=== PATIENT | female | born 1975 | race Caucasian/White ===

== ENCOUNTER 2023-03-26 18:17 | Emergency (ER) | payer MEDICAID, SELFPAY ==
[2023-03-26 18:28] VITALS: BP 195/80; PULSE 90; RESP 20; TEMP 36.8; O2SAT 99
--- NOTE | 2023-03-26 18:33 | ED.GENADUL_ITS ---
Discharge Plan Disposition Patient Disposition: Home Discharge Details Clinical Impression: Fall Primary Care Provider: Roger Ellis ED Provider: Steven Garcia Discharge Instructions Instructions: Fall Prevention (ED) Additional Instructions: You were seen in the emergency department for your mechanical fall at home over your dog yesterday. There is no acute abnormality on your abdominal CAT scan and I think that you have an abdominal wall muscle strain. There is no acute fracture to your right hand. Please use therapeutic dosing of Tylenol (acetamenophen) & Advil (ibuprofen) in an alternating fashion as follows: Take 1000mg of Tylenol every 6 hours without missing doses- that is 4 times per day. [place] in between the Tylenol dosings, take 400-600mg of Advil also on a 6 hour schedule, that is also 4 times per day. The daily maximum dosing of Tylenol is 4000mg, and the daily maximum dosing of Advil is 2400mg. This is safe to do for weeks. Please note that some common cold medications & prescription pain medications may contain acetamenophen and you need to read OTC drug labels and factor that in to maximum daily dosings. Rest, ice, compress and elevate any areas of pain. Please return to the emergency department for severe increase in pain, bowel changes, fevers, nausea/vomiting Referrals: Roger Ellis [Primary Care Provider] - Medical Decision Making This dictation utilizes [id number] dictation software and may contain unedited grammatical errors. 47 y/o F presents to ED today with a chief complaint of fall last night- tripped over her dog, impact to L side, reports mild L foot pain, L sided abdominal pain, R hand pain when she rolled over, states the fall started her menses- or she is bleeding from abdominal pain. Patients' medical history: noncontributory. Family and social history: noncontributory. Pertinent exam findings / vital signs include LLQ abdominal tenderness without peritoneal signs, benign cardiopulmonary status, neuro intact. Differential / pathologies of concern include intraabdominal bleeding, abdominal muscle strain, contusions of soft tissue to hand and foot. Diagnostic studies of: -CBC, CMP, UA, CT ABD/Pelvis w Contrast, XR R Hand. -labs benign -UA shows blood & protein, on menses -CT ABD/Pelvis shows no acute pathology -XR Hand shows no fracture Interventions of: -none. ED Course/Assessment/Plan: Patient presents for subacute pain from fall, I counseled her on negative findings on CT and x-ray, counseled therapeutic dosing of Tylenol and ibuprofen, recommend RICE therapy on any areas of pain, likely abdominal wall muscle strain. Findings not consistent with perforated viscous, hemorrhage, fracture, NV Compromise. Disposition of Fall. Patient verbalized understanding of the plan and return to ED criteria and engaged in shared decision making. Medical Records Medical records reviewed: Yes I reviewed the patient's medical records. Imaging Data Radiologic Study: Imaging: CT Scan Radiologist's impression: Exam: CT Abdomen And Pelvis With Contrast Exam date and time: 03/26/2023 8:03 PM Age: 47 years old Clinical indication: Other: Fall, llq pain, vag bleeding TECHNIQUE: Imaging protocol: Computed tomography of the abdomen and pelvis with contrast. Contrast material: 350; Contrast volume: 100 ml; Contrast route: INTRAVENOUS (IV); COMPARISON: No relevant prior studies available. FINDINGS: Lungs: Lung bases clear. Liver: Normal appearing liver. Gallbladder and bile ducts: Gallbladder partially collapsed. No calcified gallstones seen. No biliary dilatation. Pancreas: Normal appearing pancreas. Spleen: Normal appearing spleen. Adrenal glands: Normal appearing adrenal glands. Kidneys and ureters: 2 cm exophytic right renal cyst. Otherwise, normal appearing kidneys. No hydronephrosis. Stomach and bowel: No oral contrast. Stomach partially decompressed. No small bowel dilatation to suggest obstruction. Normal-appearing colon. No evidence of diverticulitis or colitis. Appendix: Normal appendix. Intraperitoneal space: No gross ascites or free air. Vasculature: Normal caliber abdominal aorta. Lymph nodes: No pathologically enlarged mesenteric, retroperitoneal, or pelvic sidewall lymph nodes. Urinary bladder: Normal appearing urinary bladder. Reproductive: Anteverted uterus, normal in size. Normal-appearing ovaries. Bones/joints: No acute fracture seen among the bones of the abdomen or pelvis. Spinal degenerative change with discogenic degeneration, Schmorl's nodes, and anterior osteophytes at multiple levels. Soft tissues: No significant ventral or inguinal hernia. IMPRESSION: 1. No acute visceral or bony injury seen in the abdomen or pelvis. 2. No obstructing ureteral stones. Dictated and Authenticated by: Chad Dunn MD. Ordering:TRINO Harris MD Radiologic Study #2: Imaging: X-Ray Radiologist's impression: Exam: XR Right Hand Exam date and time: 03/26/2023 8:12 PM Age: 47 years old Clinical indication: Injury or trauma; Fall; Blunt trauma (contusions or hematomas); Hand; Right; Injury details: Foosh x yesterday TECHNIQUE: Imaging protocol: Radiologic exam of the right hand. Views: 1 or 2 views. COMPARISON: No relevant prior studies available. FINDINGS: Bones/joints: Dorsopalmar and lateral views of the right hand reveal no acute fracture or dislocation. Soft tissues: No gross focal soft tissue swelling is demonstrated. IMPRESSION: No acute fracture or dislocation seen in the right hand. Dictated and Authenticated by: Chad Dunn MD. Ordering:TRINO Harris MD Lab Data Lab results reviewed: Yes I reviewed the patient's lab results. Labs: Laboratory Tests Range/Units 03/26/23 03/26/23 19:20 19:27 WBC (4.4-10.8) 10^3/uL 6.84 RBC (3.93-5.22) 10^6/uL 4.87 Hgb (11.2-15.7) g/dL 13.4 Hct (36.0-46.0) % 40.4 MCV (80-95) fL 83 MCH (27.0-33.0) pg 27.5 MCHC (32.0-36.0) % 33.2 RDW (11.7-14.6) % 11.9 Plt Count (130-400) 10^3/uL 260 MPV (8.0-11.0) fL 9.1 Immature Gran % 0.4 Neutrophils % 50.6 Lymphocytes % 39.0 Monocytes % 7.3 Eosinophils % 2.0 Basophils % 0.7 Nucleated RBC % (0.0-0.3) % 0.0 Absolute Neutrophils (1.2-6.7) 10^3/uL 3.45 Absolute Lymphocytes (1.2-3.4) 10^3/uL 2.67 Absolute Monocytes (0.1-0.8) 10^3/uL 0.50 Absolute Eosinophils (0.0-0.7) 10^3/uL 0.14 Absolute Basophils (0.0-0.2) 10^3/uL 0.05 Sodium (136-145) mmol/L 138 Potassium (3.5-5.1) mmol/L 3.8 Chloride (98-107) mmol/L 102 Carbon Dioxide (21.0-32.0) mmol/L 30.0 Anion Gap (3-11) mmol/L 6.0 BUN (7-18) mg/dL 13 Creatinine (0.55-1.02) mg/dL 0.9 Est GFR (CKD-EPI 2020) (mL/min/1.73m2) 79.85 Glucose (74-106) mg/dL 291 H Calcium (8.5-10.1) mg/dL 8.5 Total Bilirubin (0.2-1.0) mg/dL 0.2 AST (15-37) U/L 6 L ALT (14-59) U/L 17 Alkaline Phosphatase (46-116) U/L 92 Total Protein (6.4-8.2) g/dL 6.9 Albumin (3.4-5.0) g/dL 3.0 L Urine Color (Yellow) Yellow Urine Clarity (Clear) Clear Urine pH (5-8) 7.0 Ur Specific [place] (1.005-1.025) 1.020 Urine Protein (Negative) mg/dL 100 H Urine Ketones (Negative) mg/dL Negative Urine Blood (Negative) Small H Urine Nitrite (Negative) Negative Urine Bilirubin (Negative) Negative Urine Urobilinogen (Up to 0.2) mg/dL 0.2 Ur Leukocyte Esterase (Negative) Negative Urine RBC (0-2) HPF 3-5 H Urine WBC (0-5) HPF 0-2 Ur Epithelial Cells (Negative) HPF Few Urine Crystals (Negative) HPF Negative Urine Bacteria (Negative) HPF Negative Urine Casts (Negative) LPF Negative Urine Mucus (Negative) Trace Ur Culture Indicated? No Urine Glucose (Negative) mg/dL >=1000 H HPI General Date/Time Provider Initiated Documentation: 03/26/23 18:32 . HPI Narrative: 47 year-old female presents to ED today by POV/ambulating with a chief complaint of FOOSH last night, tripped over her dog fell onto her L side, and rolled over onto R hand. Quality described as LLQ abdominal pain that caused vaginal bleeding, but also was expceting to start menses around this time- and R hand pain, minor L foot pain, no radiation to headstrike, LOC, nausea/vomiting, photophobia, constipation, hematuria, neck pain- states her finger is not broken, feels her ankle is fine and L foot is fine- is ambulating. Severity is described as mild. Palliating factors include nothing specific. Provoking factors include nothing specific. Patient not anticoagulated. Related Data Allergies Allergy/AdvReac Type Severity Reaction Status Date / Time acetaminophen [From Percocet] Allergy Intermediate Itching Unverified 03/26/23 18:28 latex Allergy Intermediate Hives Unverified 03/26/23 18:28 oxycodone [From Percocet] Allergy Intermediate Itching Unverified 03/26/23 18:28 simvastatin Allergy Intermediate Itching Unverified 03/26/23 18:28 sulfamethoxazole Allergy Intermediate Itching Unverified 03/26/23 18:28 [From Bactrim] trimethoprim [From Bactrim] Allergy Intermediate Itching Unverified 03/26/23 18:28 General Stated Complaint: Fall/Non TraumaCriteria JERICA: 4 Review of Systems All systems reviewed & are unremarkable except as noted in HPI and below PFSH All Active Problems (Updated 03/26/23 @ 20:52 by BINDU Garcia) Fall (Acute) Social History Smoking/Tobacco Use Status: Former Tobacco Use Smoking risk assessment performed?: Yes Alcohol Intake: current Alcohol Intake frequency: 0-2 drinks per day Substance use type: marijuana Do you feel safe at home: Yes Do you feel safe in your relationship?: Yes Exam Narrative Exam Narrative: GENERAL APPEARANCE: Well-nourished, non-toxic, awake and alert, atraumatic, no acute distress. SKIN: Warm, pink, dry, intact, without rashes/lesions/ulcerations. HEAD: Normocephalic, atraumatic, normal hair distribution for gender/age. EYES: Pupils PERRLA, EOMs intact without nystagmus, normal conjunctiva, no exudates on lids/lashes. ENT: Nares patent, no circumoral cyanosis, no facial swelling NECK: Supple, trachea midline, painless cervical ROM. LUNGS/CHEST: Non-labored respirations, normal A/P diameter, symmetrical expansion, no chest wall deformity HEART (CV/PV): No peripheral edema, no JVD. ABDOMEN: Soft, non-distended, no guarding, LLQ tenderness without rebound tenderness, no rigidity, strength testing of L quadriceps causes abdominal pain in abdominal muscle distribution MSK: Normal ROM, no swelling/deformity to bilateral UEs or LEs, moving all extremities without weakness, no cyanosis, spine midline without tenderness, normal curvature. NEURO: Mental Status AAOx4 - alert to person, place, time, events No facial droop, no forehead involvement. Motor: No focal weakness - strength 5/5 in bilateral UEs and LEs, proximal and distal, symmetric. Sensory: sensation intact to light touch globally. Gait normal: patient ambulated without ataxia into ED room. PSYCH: euthymic, cooperative, pleasant, appropriate speech Course Vital Signs Vital signs: Vital Signs Temperature 36.8 C 03/26/23 18:28 Pulse 90 03/26/23 18:28 Respiratory Rate 20 03/26/23 18:28 Blood Pressure 195/80 H 03/26/23 18:28 Pulse Oximetry 99 03/26/23 18:28 Temperature 36.8 C 03/26/23 18:28 Temperature Source Oral 03/26/23 18:28 Pulse 90 03/26/23 18:28 Respiratory Rate 20 03/26/23 18:28 Blood Pressure 195/80 H 03/26/23 18:28 Blood Pressure Position Sitting 03/26/23 18:28 Pulse Oximetry 99 03/26/23 18:28 Oxygen Delivery Method Room Air 03/26/23 18:28 Oxygen Flow Rate 0 03/26/23 18:28
--- NOTE | 2023-03-26 18:45 | DI.CT_ITS ---
Exam(s) CT ABDOMEN PELVIS W EXAM: CT ABDOMEN PELVIS W CLINICAL HISTORY: fall, LLQ pain, vaginal bleeding. TECHNIQUE: Imaging Protocol: Axial computed tomography images with coronal and sagittal reformatted images were created and reviewed CONTRAST MATERIAL: Intravenous: Omnipaque 350 Contrast volume:100 ml Oral: no COMPARISON: No exams were available for comparison FINDINGS: ABDOMEN and PELVIS: Exam mildly limited by motion. Lung Bases: No acute findings. Liver: Normal density. No measurable mass. Gallbladder and biliary tract: No radiodense calculus or dilation. Pancreas: Normal density. No abnormal calcifications or inflammatory process. No evidence of mass. Spleen: Normal. Kidneys: Normal size, contour and axis. No radiodense stones. No obstructive uropathy. No suspicious masses seen. Adrenal glands: No masses seen. Vasculature: Abdominal aorta non-dilated. Mild atherosclerotic changes Soft tissues: Unremarkable. Bladder: No gross wall thickening. No calculi.No focal mass. Bowel: No obstruction. No bowel wall thickening. Appendix normal. Peritoneal cavity: No ascites. No focal collection or mesenteric inflammatory response. Bones: Degenerative changes in the lower thoracic and lumbar spine. No evidence of fracture. Reproductive organs: Within normal limits. Lymph nodes: Unremarkable. IMPRESSION:: Unremarkable CT scan of the abdomen and pelvis. RADIATION DOSE DELIVERED: Total DLP DATA REPOSITORY: All CT scans at this facility are submitted to the National Radiology Data Registry (NRDR) Dose Index Registry (DIR) with the [employer] (ACR). RADIATION OPTIMIZATION: All CT scans at this facility use at least one of these dose optimization te chniques: automated exposure control; mA and/or kV adjustment per patient size (includes targeted exa ms where dose is matched to clinical indication); or iterative reconstruction.
--- NOTE | 2023-03-26 18:49 | DI.RAD_ITS ---
Exam(s) XR HAND RT LIMITED EXAM: XR HAND RT LIMITED CLINICAL HISTORY: FOOSH yesterday. TECHNIQUE: 2D digital imaging was performed. Two views. COMPARISON: No exams were available for comparison FINDINGS: BONES: No acute fracture is present. No bony destructive lesion is seen. JOINTS: No dislocation present. SOFT TISSUE: Normal. IMPRESSION: Unremarkable radiographs of the right hand. DATA REPOSITORY: RADIATION DOSE DELIVERED:
[2023-03-26 19:34] LABS: Abs Immature Grans 0.03 10^3/uL (0.0-0.06); Absolute Basophil Count 0.05 10^3/uL (0.0-0.2); Absolute Eosinophil Count 0.14 10^3/uL (0.0-0.7); Absolute Lymphocyte Count 2.67 10^3/uL (1.2-3.4); Absolute Neutrophil Count 3.45 10^3/uL (1.2-6.7); Basophils % 0.7; HCT 40.4 % (36.0-46.0); HGB 13.4 g/dL (11.2-15.7); Immature Grans % 0.4; MCH 27.5 pg (27.0-33.0); MCHC 33.2 % (32.0-36.0); MCV 83 fL (80-95); MPV 9.1 fL (8.0-11.0); Monocytes % 7.3; Neutrophils % 50.6; Platelet Count 260 10^3/uL (130-400); RBC 4.87 10^6/uL (3.93-5.22); RDW 11.9 % (11.7-14.6); RDW-SD 36.3 fL; WBC 6.84 10^3/uL (4.4-10.8)
[2023-03-26 19:36] LABS: Bilirubin Negative (Negative); Blood Small (Negative); Clarity Clear (Clear); Glucose >=1000 mg/dL (Negative); Ketones Negative (Negative); Leukocyte Esterase Negative (Negative); Nitrite Negative (Negative); Urobilinogen 0.2 mg/dL (Up to 0.2)
[2023-03-26 19:46] LABS: Bacteria Negative HPF (Negative); C & S Indicated? No; Casts Negative LPF (Negative); Crystals Negative HPF (Negative); Epithelial Cells Few HPF (Negative); Mucus Trace (Negative); WBC 0-2 HPF (0-5)
[2023-03-26 19:48] LABS: ALT 17 U/L (14-59); AST 6 U/L (15-37); Alkaline Phosphatase 92 U/L (46-116); BUN 13 mg/dL (7-18); Bilirubin, Total 0.2 mg/dL (0.2-1.0); CREATININE 0.9 mg/dL (0.55-1.02); Calcium 8.5 mg/dL (8.5-10.1); Chloride 102 mmol/L (98-107); Estimated GFR 79.85 (mL/min/1.73m2); Glucose 291 mg/dL (74-106); Potassium 3.8 mmol/L (3.5-5.1); Sodium 138 mmol/L (136-145); Total Protein 6.9 g/dL (6.4-8.2)
[2023-03-26] MEDS: Normal Saline - Diluent 50 ML VIAL IJ (20:04)
[2023-03-26] MEDS: Omnipaque 350 MG/ML 100 ML BTL IJ (20:05)
--- NOTE | 2023-03-26 20:23 | DI.VRAD_ITS ---
PROCEDURE INFORMATION: Exam: CT Abdomen And Pelvis With Contrast Exam date and time: 03/26/2023 8:03 PM Age: 47 years old Clinical indication: Other: Fall, llq pain, vag bleeding TECHNIQUE: Imaging protocol: Computed tomography of the abdomen and pelvis with contrast. Contrast material: 350; Contrast volume: 100 ml; Contrast route: INTRAVENOUS (IV); COMPARISON: No relevant prior studies available. FINDINGS: Lungs: Lung bases clear. Liver: Normal appearing liver. Gallbladder and bile ducts: Gallbladder partially collapsed. No calcified gallstones seen. No biliary dilatation. Pancreas: Normal appearing pancreas. Spleen: Normal appearing spleen. Adrenal glands: Normal appearing adrenal glands. Kidneys and ureters: 2 cm exophytic right renal cyst. Otherwise, normal appearing kidneys. No hydronephrosis. Stomach and bowel: No oral contrast. Stomach partially decompressed. No small bowel dilatation to suggest obstruction. Normal-appearing colon. No evidence of diverticulitis or colitis. Appendix: Normal appendix. Intraperitoneal space: No gross ascites or free air. Vasculature: Normal caliber abdominal aorta. Lymph nodes: No pathologically enlarged mesenteric, retroperitoneal, or pelvic sidewall lymph nodes. Urinary bladder: Normal appearing urinary bladder. Reproductive: Anteverted uterus, normal in size. Normal-appearing ovaries. Bones/joints: No acute fracture seen among the bones of the abdomen or pelvis. Spinal degenerative change with discogenic degeneration, Schmorl's nodes, and anterior osteophytes at multiple levels. Soft tissues: No significant ventral or inguinal hernia. IMPRESSION: 1. No acute visceral or bony injury seen in the abdomen or pelvis. 2. No obstructing ureteral stones. Dictated and Authenticated by: Chad Dunn MD. Ordering:TRINO Harris MD
--- NOTE | 2023-03-26 20:28 | DI.VRAD_ITS ---
PROCEDURE INFORMATION: Exam: XR Right Hand Exam date and time: 03/26/2023 8:12 PM Age: 47 years old Clinical indication: Injury or trauma; Fall; Blunt trauma (contusions or hematomas); Hand; Right; Injury details: Foosh x yesterday TECHNIQUE: Imaging protocol: Radiologic exam of the right hand. Views: 1 or 2 views. COMPARISON: No relevant prior studies available. FINDINGS: Bones/joints: Dorsopalmar and lateral views of the right hand reveal no acute fracture or dislocation. Soft tissues: No gross focal soft tissue swelling is demonstrated. IMPRESSION: No acute fracture or dislocation seen in the right hand. Dictated and Authenticated by: Chad Dunn MD. Ordering:TRINO Harris MD
== END 2023-03-26 21:01 | disposition home or self-care (01) ==
PROVIDERS: Emergency Provider Physician Assistant; PCP Nurse Practitioner Family
DX: M79.641 Pain in right hand (principal); M79.672 Pain in left foot; R10.814 Left lower quadrant abdominal tenderness; W19.XXXA Unspecified fall, initial encounter; W54.8XXA Other contact with dog, initial encounter
CPT/HCPCS: 80053; 81025; 99284; 73120; 74177; 81003; 81015; 85025; 99283; J3490

== ENCOUNTER 2023-04-16 19:07 | Emergency (ER) | payer MEDICAID, SELFPAY ==
--- NOTE | 2023-04-16 19:15 | DI.RAD_ITS ---
Exam(s) XR CHEST 2V PA LATERAL EXAM: XR CHEST 2V PA LATERAL CLINICAL HISTORY: sob, sore throat, fever TECHNIQUE: 2D digital imaging was performed. COMPARISON: No exams were available for comparison FINDINGS: HEART: Normal size. Aorta: Not dilated. PULMONARY VASCULATURE: Normal. LUNGS: Clear. PLEURAL SPACE: No pleural effusion or pneumothorax. BONE:Flowing osteophytes in the spine. Soft tissues: Unremarkable. IMPRESSION: No acute abnormality. DATA REPOSITORY: RADIATION DOSE DELIVERED:
[2023-04-16 19:16] VITALS: BP 181/95; PULSE 108; RESP 16; TEMP 38.1; O2SAT 100
--- NOTE | 2023-04-16 19:19 | ED.GENADUL_ITS ---
Discharge Plan Disposition Patient Disposition: Home Condition: Stable Discharge Details Clinical Impression: Acute streptococcal pharyngitis Primary Care Provider: Roger Ellis ED Provider: Lilian Blankenship Home Meds and New Rx's Prescriptions: New amoxicillin 500 mg capsule 500 mg PO BID Qty: 18 0RF Continued pantoprazole 40 mg tablet,delayed release (DR/EC) 40 mg PO DAILY losartan 25 mg tablet 25 mg PO DAILY bupropion HCl 300 mg tablet extended release 24 hr 300 mg PO DAILY folic acid 1 mg tablet 1 mg PO DAILY Lantus Solostar U-100 Insulin Novolog FlexPen U-100 Insulin Patient Comments: sliding scale Discharge Instructions Instructions: Pharyngitis (ED) Additional Instructions: Continue antibiotics as prescribed completing course even if you feel better Push fluids to stay well-hydrated drink at least 6 to 8 glasses of water daily to stay well-hydrated Can use ibuprofen 600 mg 4 times daily with food for symptoms adding acetaminophen 650 mg 4 times daily for breakthrough pain Referrals: Roger Ellis [Primary Care Provider] - Medical Decision Making This is a 47-year-old female patient who has had upper respiratory symptoms for 1 week took a home COVID test was negative states her symptoms were improving initially but seems to have worsened again presents tonight for complaints of throat pain states it is severe also in review of systems she is complaining of chest discomfort but this has been constant since yesterday denies any alleviating or aggravating factors. She has not taken any [id number] pain medication. Will obtain COVID antigen and rapid strep as these are the most likely differentials. Think is prudent to do a chest x-ray to evaluate for pneumonia in the setting of the shortness of breath and chest discomfort. On triage she does have a temp of 38.1. Oxygenating 100% on room air though with clear breath sounds bilaterally. She will be given ibuprofen 800 mg orally while awaiting results. Results reviewed chest x-ray shows no acute cardiopulmonary findings. COVID antigen test is negative, strep a is positive. She will be given amoxicillin 500 mg orally 1 tab for here 1 tab for a.m. use. Prescription has been sent to the pharmacy on record per her request. Patient is stable for discharge to home for outpatient treatment of strep pharyngitis. Medical Records Medical records reviewed: Yes I reviewed the patient's medical records. Imaging Data Radiologic Study: Imaging: X-Ray Radiologist's impression: Patient Name: Rochelle Cagle Unit #: [id number] Loc: ER Ordering Provider: Status: REG ER Primary Care Provider: Roger Ellis Date of Exam: 04/16/23 Sex: F : 1975 Age: 47 Exam(s) PROCEDURE INFORMATION: Exam: XR Chest Exam date and time: 04/16/2023 7:49 PM Age: 47 years old Clinical indication: Fever and shortness of breath; Additional info: SOB, fever, sore throat TECHNIQUE: Imaging protocol: Radiologic exam of the chest. Views: 2 views. COMPARISON: CT ABDOMEN PELVIS W 03/26/2023 8:03 PM FINDINGS: Lungs: No pulmonary consolidation is seen. Pleural spaces: No pleural effusion or pneumothorax is demonstrated. Heart/Mediastinum: Heart size is normal. Bones/joints: The visualized bony structures appear grossly intact. Osteophytes are noted along the thoracic spinal margin. IMPRESSION: No active disease is seen in the chest. Dictated and Authenticated by: Chad Dunn MD. Lab Data Lab results reviewed: Yes I reviewed the patient's lab results. Lab results narrative: Rapid strep positive HPI General Mode of arrival: ambulatory . Date/Time Provider Initiated Documentation: 04/16/23 19:18 . Limitations to Documentation: no limitations . Information obtained by: patient . HPI Narrative: presents with c/o sore throat, reports fever and chills states that she did have flulike symptoms over a week ago but those have improved but today developed with the sore throat. She tried Chloraseptic spray which states made the symptoms worse. She has not tried any ibuprofen or acetaminophen. Denies any abdominal pain nausea vomiting or diarrhea. Related Data Home Medications Medication Instructions Recorded Confirmed Lantus Solostar U-100 Insulin 04/16/23 Novolog FlexPen U-100 Insulin 04/16/23 amoxicillin 500 mg capsule 500 mg PO BID #18 caps 04/16/23 bupropion HCl 300 mg 24 hr tablet, 300 mg PO DAILY 04/16/23 04/16/23 extended release folic acid 1 mg tablet 1 mg PO DAILY 04/16/23 04/16/23 losartan 25 mg tablet 25 mg PO DAILY 04/16/23 04/16/23 pantoprazole 40 mg tablet,delayed 40 mg PO DAILY 04/16/23 04/16/23 release Previous Rx's Medication Instructions Recorded amoxicillin 500 mg capsule 500 mg PO BID #18 caps 04/16/23 Allergies Allergy/AdvReac Type Severity Reaction Status Date / Time acetaminophen [From Percocet] Allergy Intermediate Itching Unverified 04/16/23 19:20 latex Allergy Intermediate Hives Unverified 04/16/23 19:20 oxycodone [From Percocet] Allergy Intermediate Itching Unverified 04/16/23 19:20 simvastatin Allergy Intermediate Itching Unverified 04/16/23 19:20 sulfamethoxazole Allergy Intermediate Itching Unverified 04/16/23 19:20 [From Bactrim] trimethoprim [From Bactrim] Allergy Intermediate Itching Unverified 04/16/23 19:20 General JERICA: 4 Review of Systems All systems reviewed & are unremarkable except as noted in HPI and below PFSH All Active Problems (Updated 04/16/23 @ 20:31 by Lilian Blankenship NP) Acute streptococcal pharyngitis (Acute) Fall (Acute) Social History Smoking/Tobacco Use Status: Former Tobacco Use Smoking risk assessment performed?: Yes Alcohol Intake: current Alcohol Intake frequency: 0-2 drinks per day Substance use type: former substance user Do you feel safe at home: Yes Do you feel safe in your relationship?: Yes Exam Narrative Exam Narrative: Morbidly obese female of stated age no acute distress head is atraumatic oral mucosa is moist posterior pharynx erythematous uvula midline respirations even and unlabored breath sounds are clear bilaterally. Cardiovascular regular rate and rhythm abdomen benign moves extremities skin is flushed warm dry. Eyes noninjected nonicteric. No nasal discharge
[2023-04-16 19:37] VITALS: BP 181/95; PULSE 108; RESP 16; TEMP 38.1; O2SAT 100
[2023-04-16] MEDS: Ibuprofen 800 MG TAB PO (19:38)
[2023-04-16] MEDS: Amoxicillin 500 MG CAP PO ×2 (19:38→20:38)
--- NOTE | 2023-04-16 20:28 | DI.VRAD_ITS ---
PROCEDURE INFORMATION: Exam: XR Chest Exam date and time: 04/16/2023 7:49 PM Age: 47 years old Clinical indication: Fever and shortness of breath; Additional info: SOB, fever, sore throat TECHNIQUE: Imaging protocol: Radiologic exam of the chest. Views: 2 views. COMPARISON: CT ABDOMEN PELVIS W 03/26/2023 8:03 PM FINDINGS: Lungs: No pulmonary consolidation is seen. Pleural spaces: No pleural effusion or pneumothorax is demonstrated. Heart/Mediastinum: Heart size is normal. Bones/joints: The visualized bony structures appear grossly intact. Osteophytes are noted along the thoracic spinal margin. IMPRESSION: No active disease is seen in the chest. Dictated and Authenticated by: Chad Dunn MD. Ordering:RAVEN Quintana MD
== END 2023-04-16 20:39 | disposition home or self-care (01) ==
PROVIDERS: Emergency Provider Nurse Practitioner Acute Care; PCP Nurse Practitioner Family
DX: J02.0 Streptococcal pharyngitis (principal); Z87.891 Personal history of nicotine dependence
CPT/HCPCS: 87426; 87880; 99283; 71046; 87081; 99284

== ENCOUNTER 2024-04-30 18:03 | Inpatient (IN) | payer MEDICAID, SELFPAY ==
[2024-04-30] VITALS (44 sets, daily range): BP systolic 165–230; BP diastolic 83–123; PULSE 74–98; RESP 9–39; TEMP 36.5–36.7; O2SAT 93–100
--- NOTE | 2024-04-30 18:00 | RT.EKG_ITS ---
APPROVED REPORT Exam: Resting ECG Reason for Exam: facial numbness, hypertension Patient Location: E HR:93 bpm ECG Measurements Heart Rate 93 AXIS VT 155 P 51 QRSd 95 QRS 58 QT 361 T 35 QTc 450 Conclusion Sinus rhythm 93 normal axis no stemi
--- NOTE | 2024-04-30 18:30 | DI.CT_ITS ---
Exam(s) CT HEAD WO EXAM: CT HEAD WO CLINICAL HISTORY: HEAD INJURY. TECHNIQUE: Imaging Protocol: Axial computed tomography images with coronal and sagittal reformatted images were created and reviewed COMPARISON: No exams were available for comparison FINDINGS: There are no skull fractures. There is no fluid in the visualized paranasal sinuses. There is no evidence of intracranial hemorrhage, mass effect, or shift of midline structures. There are no extra-axial fluid collections. The ventricles are not enlarged or shifted and there is no blo od within the ventricular system nor within the basal cisterns. There is a 4 millimeter hypodensity in the right thalamus consistent with a nonhemorrhagic lacunar in farct. This is not acute appearing. IMPRESSION: No acute intracranial findings on this noninfused CT scan of the brain. The coronary infarct incidentally noted in the right thalamus. Report called by myself to ER physician 04/30/2024 6:55 p.m. RADIATION DOSE DELIVERED: 810.61mGy.cm Total DLP DATA REPOSITORY: All CT scans at this facility are submitted to the National Radiology Data Registry (NRDR) Dose Index Registry (DIR) with the [employer] (A[employer]). RADIATION OPTIMIZATION: All CT scans at this facility use at least one of these dose optimization te chniques: automated exposure control; mA and/or kV adjustment per patient size (includes targeted exa ms where dose is matched to clinical indication); or iterative reconstruction.
[2024-04-30] MEDS: Ketorolac 15 MG/ML VIAL 10 MG IVP (19:58)
[2024-04-30 19:59] LABS: Abs Immature Grans 0.06 10^3/uL (0.0-0.06); Absolute Basophil Count 0.03 10^3/uL (0.0-0.2); Absolute Eosinophil Count 0.05 10^3/uL (0.0-0.7); Absolute Lymphocyte Count 2.69 10^3/uL (1.2-3.4); Absolute Monocyte Count 0.51 10^3/uL (0.1-0.8); Absolute Neutrophil Count 4.62 10^3/uL (1.2-6.7); Basophils % 0.4 %; Eosinophils % 0.6 %; HCT 42.2 % (36.0-46.0); HGB 14.4 g/dL (11.2-15.7); Immature Grans % 0.8 %; Lymphocytes % 33.8 %; MCH 28.1 pg (27.0-33.0); MCHC 34.1 % (32.0-36.0); MCV 82 fL (80-95); MPV 9.6 fL (8.0-11.0); Monocytes % 6.4 %; Platelet Count 279 10^3/uL (130-400); RBC 5.12 10^6/uL (3.93-5.22); RDW 11.6 % (11.7-14.6); RDW-SD 34.9 fL; WBC 7.96 10^3/uL (4.4-10.8)
[2024-04-30] MEDS: Metoclopramide 10 MG/2 ML VIAL IVP (19:59)
[2024-04-30] MEDS: Normal Saline Flush 10 ML SYR IVP (19:59)
[2024-04-30 20:32] LABS: Prothrombin Time 9.7 sec (9.1-11.1)
[2024-04-30 20:33] LABS: ALT 19 U/L (14-59); AST 9 U/L (15-37); Albumin 3.2 g/dL (3.4-5.0); Alkaline Phosphatase 80 U/L (46-116); Anion Gap 5.8 mmol/L (3-11); BUN 15 mg/dL (7-18); CO2 30.2 mmol/L (21.0-32.0); CREATININE 0.8 mg/dL (0.55-1.02); Calcium 8.8 mg/dL (8.5-10.1); Chloride 102 mmol/L (98-107); Glucose 236 mg/dL (74-106); Potassium 3.7 mmol/L (3.5-5.1); Sodium 138 mmol/L (136-145); Total Protein 6.9 g/dL (6.4-8.2); Troponin I 4 ng/L (<or=51)
[2024-04-30] MEDS: amLODIPine 5 MG TAB PO (21:04)
[2024-04-30 21:10] LABS: Troponin I < 4 ng/L (<or=51)
--- NOTE | 2024-04-30 21:15 | ED.GENADUL_ITS ---
Discharge Plan Disposition Patient Disposition: Admit to [facility] Condition: Stable Discharge Details Chief Complaint: GenMedical Clinical Impression: CVA (cerebrovascular accident), Hypertension Primary Care Provider: Roger Ellis ED Provider: Erasto Jovel Home Meds and New Rx's Prescriptions: No Action Ozempic 1 mg/dose (4 mg/3 mL) pen injector 1 mg subcut QWEEK Rx Instructions: Takes every week on Friday pantoprazole 40 mg tablet,delayed release (DR/EC) 40 mg PO DAILY folic acid 1 mg tablet 1 mg PO DAILY HPI General Date/Time Provider Initiated Documentation: 04/30/24 18:17 . Limitations to Documentation: no limitations . Information obtained by: patient . HPI Narrative: 48-year-old female with history of diabetes (on semaglutide) presents for evaluation of left-sided facial numbness and left arm numbness. The patient reports that a month ago she fell and hit her head. She is unable to describe the circumstances of her fall. She states that she felt like she was just pushed and fell over. She states that she does not know if she lost consciousness or have any other information regarding the fall. She reports that since that time she has been having some headache and feeling some pain and discomfort on the left side of her body and some weird sensations on the left side of her body. She reports that since yesterday she has been having a numb sensation on the left side of her face. She denies any speech changes. Related Data Home Medications ?Medication ?Instructions ?Recorded ?Confirmed folic acid 1 mg tablet 1 mg PO DAILY 04/16/23 04/30/24 pantoprazole 40 mg tablet,delayed 40 mg PO DAILY 04/16/23 04/30/24 release semaglutide 1 mg/dose (4 mg/3 mL) 1 mg subcut QWEEK 04/30/24 04/30/24 subcutaneous pen injector (Ozempic) Allergies Allergy/AdvReac Type Severity Reaction Status Date / Time latex Allergy Intermediate Hives Unverified 04/30/24 18:12 oxycodone (From Percocet) Allergy Intermediate Itching Unverified 04/30/24 18:12 simvastatin Allergy Intermediate Itching Unverified 04/30/24 18:12 sulfamethoxazole (From Allergy Intermediate Itching Unverified 04/30/24 18:12 Bactrim) trimethoprim (From Bactrim) Allergy Intermediate Itching Unverified 04/30/24 18:12 empagliflozin (From AdvReac Intermediate Other (See Unverified 04/30/24 21:08 Jardiance) Comment) General Stated Complaint: GenMedical JERICA: 2 Exam Narrative Exam Narrative: Review of Systems: All systems reviewed & are unremarkable except as noted in HPI and below Well-developed, no acute distress Contusion noted to central forehead PERRL, normal conjunctiva no nystagmus Bilateral TMs unremarkable No intraoral lesions RRR no murmur Unlabored respiratory effort clear bilaterally Nondistended abdomen soft nontender no focal neurologic deficits, cranial nerves intact, gross sensation intact, good strength throughout, Flat affect that is bizarre Course Vital Signs Vital signs: Vital Signs Temperature 36.7 C 04/30/24 18:06 Pulse 95 H 04/30/24 18:06 Respiratory Rate 14 04/30/24 18:06 Blood Pressure 228/122 H 04/30/24 18:06 Pulse Oximetry 98 04/30/24 18:06 Temperature 36.7 C 04/30/24 18:15 Temperature Source Oral 04/30/24 18:15 Pulse 79 04/30/24 20:46 Pulse 86 04/30/24 20:50 Respiratory Rate 12 04/30/24 20:50 Respiratory Effort Normal, Non-Labored 04/30/24 18:31 Respiratory Depth Normal 04/30/24 18:31 Blood Pressure 188/95 H 04/30/24 20:46 Blood Pressure Mean 129 04/30/24 20:46 Pulse Oximetry 99 04/30/24 20:50 Oxygen Delivery Method Room Air 04/30/24 18:15 Oxygen Flow Rate 0 04/30/24 18:15 Pain Level 8 04/30/24 19:58 Lab/Test Results Lab/Test Results: Laboratory Tests Range/Units 04/30/24 04/30/24 04/30/24 19:45 20:09 20:47 WBC (4.4-10.8) 10^3/uL 7.96 RBC (3.93-5.22) 10^6/uL 5.12 Hgb (11.2-15.7) g/dL 14.4 Hct (36.0-46.0) % 42.2 MCV (80-95) fL 82 MCH (27.0-33.0) pg 28.1 MCHC (32.0-36.0) % 34.1 RDW (11.7-14.6) % 11.6 L Plt Count (130-400) 10^3/uL 279 MPV (8.0-11.0) fL 9.6 Immature Gran % % 0.8 Neutrophils % % 58.0 Lymphocytes % % 33.8 Monocytes % % 6.4 Eosinophils % % 0.6 Basophils % % 0.4 Nucleated RBC % (0.0-0.3) % 0.0 Absolute Neutrophils (1.2-6.7) 10^3/uL 4.62 Absolute Lymphocytes (1.2-3.4) 10^3/uL 2.69 Absolute Monocytes (0.1-0.8) 10^3/uL 0.51 Absolute Eosinophils (0.0-0.7) 10^3/uL 0.05 Absolute Basophils (0.0-0.2) 10^3/uL 0.03 PT Cancelled 9.7 INR Cancelled 1.0 APTT Cancelled 31.0 H Sodium Cancelled 138 Potassium Cancelled 3.7 Chloride Cancelled 102 Carbon Dioxide Cancelled 30.2 Anion Gap Cancelled 5.8 BUN Cancelled 15 Creatinine Cancelled 0.8 Est GFR (CKD-EPI 2020) Cancelled 91.40 Glucose Cancelled 236 H Calcium Cancelled 8.8 Total Bilirubin Cancelled 0.40 AST Cancelled 9 L ALT Cancelled 19 Alkaline Phosphatase Cancelled 80 Troponin I Cancelled 4 < 4 Total Protein Cancelled 6.9 Albumin Cancelled 3.2 L Medical Decision Making Emergent evaluation of left-sided subjective sensory deficit and headache. Patient reports that she fell 1 month ago but she appears to have a new contus ion on her forehead. Her affect is very bizarre and she is having difficulty answering all the questions. The she does not have focal neurodeficits. After some time the patient and her decided that she did bump her head 2 days ago. But they are not really able to provide additional information regarding this. Given the signs of acute trauma, the subjective sensory change in her bizarre affect, a head CT was obtained. Patient is noted to be hypertensive. I discussed the head CT findings with the radiologist and there does appear to be an infarct of the right thalamus. Unclear the age of this infarct. I did perform a teleneuro consultation. It seems that this infarct may correspond to her symptoms a month ago. She has noted to be hypertensive. She is not on blood pressure medication. She is also hyperglycemic, she reports that she was taken off her insulin medications so that she can only take the semaglutide. Given her diagnosis of stroke and uncontrolled blood pressure, patient should be admitted for medical optimization. Discussed with hospitalist who agreed. Quality:SDOH Health Related Social Needs: No Data to Display PFSH All Active Problems (Updated 04/30/24 @ 21:40 by Erasto Jovel MD) Hypertension (Chronic) CVA (cerebrovascular accident) (Chronic) Social History Smoking/Tobacco Use Status: Former Tobacco Use Smoking risk assessment performed?: Yes Alcohol Intake: current Alcohol Intake frequency: 0-2 drinks per day Substance use type: former substance user Do you feel safe at home: Yes Do you feel safe in your relationship?: Yes
[2024-04-30 21:24] LABS: Lab Add On Test DONE
[2024-04-30 21:38] LABS: Hemoglobin A1C 11.5 % (<5.7)
--- NOTE | 2024-04-30 22:01 | W.PC.ACHO ---
Registration Status: Primary Language: Preferred Language: ED Information & Data Chief Complaint GenMedical 04/30/24 21:18 Triage Note Pt arrives to ED s/p head 04/30/24 18:06 injury (approx. 4 weeks ago per pt) - pt unsure of exact date; pt states she's having increased forgetfulness + irritability since fall. Swelling to forehead noted. Pt states she is having LT sided facial numbness which started last night (pt unsure of exact time). Pt is also having a WOO x 3 days. Pt also c/o URI sx x a couple weeks. Most Recent Vital Signs Temperature 36.7 C 04/30/24 18:15 Temperature Source Oral 04/30/24 18:15 Pulse 75 04/30/24 21:16 Pulse 76 04/30/24 21:16 Respiratory Rate 16 04/30/24 21:16 Respiratory Effort Normal, Non-Labored 04/30/24 18:31 Respiratory Depth Normal 04/30/24 18:31 Blood Pressure 190/92 H 04/30/24 21:16 Blood Pressure Mean 129 04/30/24 21:16 Pulse Oximetry 98 04/30/24 21:16 Oxygen Delivery Method Room Air 04/30/24 18:15 Oxygen Flow Rate 0 04/30/24 18:15 Pain Level 8 04/30/24 19:58 Allergies latex Allergy (Intermediate, Unverified 04/30/24 18:12) Hives oxycodone (From Percocet) Allergy (Intermediate, Unverified 04/30/24 18:12) Itching simvastatin Allergy (Intermediate, Unverified 04/30/24 18:12) Itching Pt unsure of other reaction sulfamethoxazole (From Bactrim) Allergy (Intermediate, Unverified 04/30/24 18:12) Itching trimethoprim (From Bactrim) Allergy (Intermediate, Unverified 04/30/24 18:12) Itching empagliflozin (From Jardiance) Adverse Reaction (Intermediate, Unverified 04/30/24 21:08) Other (See Comment) Makes Pt very angry Precautions Isolation Standard precaution 04/30/24 18:12 Active Medications Generic Name Dose Route Start Last Admin Trade Name Freq PRN Reason Stop Dose Admin Sodium Chloride 0 ml 04/30/24 20:00 04/30/24 19:59 Normal Saline Flush 10 Ml Syr IVP 10 ml BID ARNOLD Administration IV IV Catheter Type [Left Saline Lock Antecubital] IV Catheter Gauge [Left 18 Antecubital] Diet Orders Category Date Time Status Diabetes Consistent CHO/Heart Healthy [DIET] Nutrition 05/01/24 Breakfast Ordered Diagnostics 04/30/24 04/30/24 04/30/24 Range/Units 20:48 20:47 20:09 WBC (4.4-10.8) 10^3/uL RBC (3.93-5.22) 10^6/uL Hgb (11.2-15.7) g/dL Hct (36.0-46.0) % MCV (80-95) fL MCH (27.0-33.0) pg MCHC (32.0-36.0) % RDW (11.7-14.6) % Plt Count (130-400) 10^3/uL MPV (8.0-11.0) fL Immature Gran % % Neutrophils % % Lymphocytes % % Monocytes % % Eosinophils % % Basophils % % Nucleated RBC % (0.0-0.3) % Absolute Neutrophils (1.2-6.7) 10^3/uL Absolute Lymphocytes (1.2-3.4) 10^3/uL Absolute Monocytes (0.1-0.8) 10^3/uL Absolute Eosinophils (0.0-0.7) 10^3/uL Absolute Basophils (0.0-0.2) 10^3/uL PT 9.7 INR 1.0 APTT 31.0 H Sodium 138 Potassium 3.7 Chloride 102 Carbon Dioxide 30.2 Anion Gap 5.8 BUN 15 Creatinine 0.8 Est GFR (CKD-EPI 2020) 91.40 Glucose 236 H Hemoglobin A1c (<5.7) % Calcium 8.8 Total Bilirubin 0.40 AST 9 L ALT 19 Alkaline Phosphatase 80 Troponin I < 4 4 Total Protein 6.9 Albumin 3.2 L Triglycerides Pending Total Cholesterol Pending LDL Cholesterol, Calc Pending HDL Cholesterol Pending Add-On Test Request DONE 04/30/24 Range/Units 19:45 WBC 7.96 (4.4-10.8) 10^3/uL RBC 5.12 (3.93-5.22) 10^6/uL Hgb 14.4 (11.2-15.7) g/dL Hct 42.2 (36.0-46.0) % MCV 82 (80-95) fL MCH 28.1 (27.0-33.0) pg MCHC 34.1 (32.0-36.0) % RDW 11.6 L (11.7-14.6) % Plt Count 279 (130-400) 10^3/uL MPV 9.6 (8.0-11.0) fL Immature Gran % 0.8 % Neutrophils % 58.0 % Lymphocytes % 33.8 % Monocytes % 6.4 % Eosinophils % 0.6 % Basophils % 0.4 % Nucleated RBC % 0.0 (0.0-0.3) % Absolute Neutrophils 4.62 (1.2-6.7) 10^3/uL Absolute Lymphocytes 2.69 (1.2-3.4) 10^3/uL Absolute Monocytes 0.51 (0.1-0.8) 10^3/uL Absolute Eosinophils 0.05 (0.0-0.7) 10^3/uL Absolute Basophils 0.03 (0.0-0.2) 10^3/uL PT Cancelled INR Cancelled APTT Cancelled Sodium Cancelled Potassium Cancelled Chloride Cancelled Carbon Dioxide Cancelled Anion Gap Cancelled BUN Cancelled Creatinine Cancelled Est GFR (CKD-EPI 2020) Cancelled Glucose Cancelled Hemoglobin A1c 11.5 H (<5.7) % Calcium Cancelled Total Bilirubin Cancelled AST Cancelled ALT Cancelled Alkaline Phosphatase Cancelled Troponin I Cancelled Total Protein Cancelled Albumin Cancelled Triglycerides Total Cholesterol LDL Cholesterol, Calc HDL Cholesterol Add-On Test Request [id number] Documentation Fingerstick Glucose Start: 04/30/24 18:19 Freq: Status: Complete Protocol: Activity Type Activity Date Activity User E-sign Co-sign Detail Recorded Client Recorded Date Recorded By Document 04/30/24 18:18 BKG DAEMON(5) [id number] 04/30/24 18:19 BKG DAEMON(6) Intake and Output - 24 Hour Total 04/30/24 18:03 thru 04/30/24 18:06 Weight 104.78 kg Falls Risk Assessment History of Falls No History 04/30/24 18:15 Contributing Factors No Factors 04/30/24 18:15 Ambulatory Aids Independent 04/30/24 18:15 Tubes/Lines W/no contributing factors 04/30/24 18:15 Gait Evaluation No gait disturbance 04/30/24 18:15 Cognition No cognitive impairment 04/30/24 18:15 Fall Total Score 04/30/24 18:15 Level of Risk Standard/Low Risk 04/30/24 18:15 Problems (Last Reviewed 04/30/24 @ 21:17 by Erasto Jovel MD) Hypertension (Chronic) CVA (cerebrovascular accident) (Chronic) v v v v v v v v v Sending and/or Receiving Nurses: Please use comment section below to note any information pertinent to the patient hand-off not included above. Information / Comments: Per RN neuro checks have been benign. Report received from: Vandana Dan
--- NOTE | 2024-04-30 22:26 | W.PM.HP.N ---
Date of service: 04/30/24 Time of Service: 22:05 Assessment and Plan Assessment and plan (1) CVA (cerebrovascular accident): Status: Chronic Assessment and plan: Non acute CVA seen in Aashish nelson, which could explain subacute left sided symptoms. She may have had additional infarct ba I appreciate teleneuro recommendations Will admit, cardiac rehabilitation specialist, treat with statin and aspirin, and await availabilty of MRI, echo, carotid studies. Poor statin tolerance to simva, try rosuvastatin as we can get most effect with smallest dose. (2) Hypertension: Status: Chronic Assessment and plan: BP initially high but coming down with 5 mg amlodipine. With concern for CVA allow permissive HTN. (3) DVT prophylaxis: Status: Acute Assessment and plan: enoxparin (4) Type 2 diabetes mellitus: Assessment and plan: A1c poorly controlled. Add basal insulin to GLP-1. She does not tolerate metformin for GI side effects. she will need additional education. History of Present Illness History of Present Illness Chief Complaint: headache, fall Narrative: 48 yo F with history of type 2 DM and gestational hypertension is presenting with falls, headache, and left sided face and arm numbness. She states she first started with some more subtle relative weakness on her left side after she tripped over her cat and fell a year ago. 1-2 months ago she was emotionally upset dealing with her granddaughter and felt her blood pressure go up. At that point she felt like somebody pushed her from behind (even though nobody was there) and she fell to her left side and bumped her left forehead. For the past 5 days or so she has been getting headaches on left retroorbital thobbing coming and going, a/w nausea and some rhinorrhea and tearing. No fever, and she doesnt feel sick otherwise. For the past 2 days she has felt a feeling of numbness on her left face and arm/hand, which brought her in. She does not have a history of chronic headaches. She is sexually active and not using contraception. She did have 2 miscarriages in first trimester in the past 2 years and four SABs overall, with no history of term despite not using contraceptives over the years. Review of Systems All systems reviewed & are unremarkable except as noted in HPI and below Constitutional Constitutional: Reports weight loss (40 lbs in the past few months, since using ozempic) Neurologic Neurologic: Denies localized weakness PFSH All Active Problems General counseling and advice on contraceptive management (Acute) DVT prophylaxis (Acute) Hypertension (Chronic) CVA (cerebrovascular accident) (Chronic) Medical History Type 2 diabetes mellitus Surgical History S/P removal of ovarian cyst Family History (Updated 05/01/24 @ 01:18 by Elmer Crockett) Mother Diabetes Heart disease Sister Diabetes Social History (Updated 05/01/24 @ 01:19 by Elmer Crockett) Smoking/Tobacco Use Status: Former Tobacco Use Smoking risk assessment performed?: Yes Alcohol Intake: current Alcohol Intake frequency: 0-2 drinks per day Substance use type: former substance user Housing: apartment Do you feel safe at home: Yes Do you feel safe in your relationship?: Yes Additional Social history: Lives with and 3 grandkids in [facility] Allergies and Home Medications Allergies Allergy/AdvReac Type Severity Reaction Status Date / Time latex Allergy Intermediate Hives Unverified 04/30/24 18:12 oxycodone (From Percocet) Allergy Intermediate Itching Unverified 04/30/24 18:12 simvastatin Allergy Intermediate Itching Unverified 04/30/24 18:12 sulfamethoxazole (From Allergy Intermediate Itching Unverified 04/30/24 18:12 Bactrim) trimethoprim (From Bactrim) Allergy Intermediate Itching Unverified 04/30/24 18:12 empagliflozin (From AdvReac Intermediate Other (See Unverified 04/30/24 21:08 Jardiance) Comment) Home Medications ?Medication ?Instructions ?Recorded ?Confirmed ?Type folic acid 1 mg tablet 1 mg PO DAILY 04/16/23 04/30/24 History pantoprazole 40 mg tablet,delayed 40 mg PO DAILY 04/16/23 04/30/24 History release semaglutide 1 mg/dose (4 mg/3 mL) 1 mg subcut QWEEK 04/30/24 04/30/24 History subcutaneous pen injector (Ozempic) Exam Narrative Exam Narrative: GEN: Alert and oriented x 4, pleasant and cooperative, gives a vague history. No acute distress at rest. HEENT: Head atraumatic. Conjunctiva clear, no icterus. PEERL, EOMI. no rhinorrhea. MMM, OP benign. Neck is supple with no masses or lymphadenopathy, trachea midline LUNGS: CTAB with normal effort CV: RRR with no murmurs, gallops, or rubs. ABD: active bowel sounds, soft, nontender and nondistended. No masses. EXT: no cyanosis, clubbing, or edema MSK: No joint redness or swelling NEURO: CN 2-12 intact, including visual field to confrontation. No pronator drift. Normal FNF, HTS. Normal strength and sensation of 4 extremities. Normal speech. DTRs symmetric in LE. No tremor SKIN: No rashes or open wounds. PSYCH: normal mood and affect Results Imaging Imaging Studies: CT head: There is a 4 millimeter hypodensity in the right thalamus consistent with a nonhemorrhagic lacunar infarct. This is not acute appearing. No acute intracranial findings on this noninfused CT scan of the brain. The coronary infarct incidentally noted in the right thalamus. Labs 04/30/24 19:45 04/30/24 20:09 Labs: Laboratory Results - last 24 hr 04/30/24 04/30/24 04/30/24 19:45 20:09 20:47 WBC 7.96 RBC 5.12 Hgb 14.4 Hct 42.2 MCV 82 MCH 28.1 MCHC 34.1 RDW 11.6 L Plt Count 279 MPV 9.6 Immature Gran % 0.8 Neutrophils % 58.0 Lymphocytes % 33.8 Monocytes % 6.4 Eosinophils % 0.6 Basophils % 0.4 Nucleated RBC % 0.0 Absolute Neutrophils 4.62 Absolute Lymphocytes 2.69 Absolute Monocytes 0.51 Absolute Eosinophils 0.05 Absolute Basophils 0.03 PT Cancelled 9.7 INR Cancelled 1.0 APTT Cancelled 31.0 H Sodium Cancelled 138 Potassium Cancelled 3.7 Chloride Cancelled 102 Carbon Dioxide Cancelled 30.2 Anion Gap Cancelled 5.8 BUN Cancelled 15 Creatinine Cancelled 0.8 Est GFR (CKD-EPI 2020) Cancelled 91.40 Glucose Cancelled 236 H Hemoglobin A1c 11.5 H Calcium Cancelled 8.8 Total Bilirubin Cancelled 0.40 AST Cancelled 9 L ALT Cancelled 19 Alkaline Phosphatase Cancelled 80 Troponin I Cancelled 4 < 4 Total Protein Cancelled 6.9 Albumin Cancelled 3.2 L Add-On Test Request 04/30/24 20:48 WBC RBC Hgb Hct MCV MCH MCHC RDW Plt Count MPV Immature Gran % Neutrophils % Lymphocytes % Monocytes % Eosinophils % Basophils % Nucleated RBC % Absolute Neutrophils Absolute Lymphocytes Absolute Monocytes Absolute Eosinophils Absolute Basophils PT INR APTT Sodium Potassium Chloride Carbon Dioxide Anion Gap BUN Creatinine Est GFR (CKD-EPI 2020) Glucose Hemoglobin A1c Calcium Total Bilirubin AST ALT Alkaline Phosphatase Troponin I Total Protein Albumin Add-On Test Request DONE Last Vital Signs Temp 36.7 C 04/30/24 18:15 Pulse 87 04/30/24 22:16 Resp 16 04/30/24 22:20 BP 222/123 H 04/30/24 22:16 Pulse Ox 99 04/30/24 22:02 Time Spent Time spent with Patient: 55-74 minutes Time was spent: preparing to see the patient(eg.review tests), obtaining and/or reviewing separately otained hiistory, ordering medications,tests, procedures, referring, communicating with other health early breastfeeding care specialist, indepentently interpreting results, counseling the patient and care coordination
[2024-04-30 22:43] LABS: Calculated LDL 68 mg/dL (<100); Cholesterol 155 mg/dL (<200); HDL Cholesterol 46 mg/dL (40-60); Triglyceride 207 mg/dL (<150)
[2024-04-30] MEDS: Aspirin 325 MG TAB PO (23:24)
[2024-04-30] MEDS: Rosuvastatin 20 MG TAB PO (23:25)
[2024-05-01] VITALS (7 sets, daily range): BP systolic 140–165; BP diastolic 75–92; PULSE 77–91; RESP 15–18; TEMP 35.9–37.1; O2SAT 96–100
[2024-05-01 01:38] LABS: COVID-19 PCR Negative (Negative); Influenza A PCR Negative (Negative); Influenza B PCR Negative (Negative); RSV PCR Negative (Negative)
[2024-05-01 01:44] LABS: Source Nasopharynx
[2024-05-01 06:47] LABS: TSH (W/Ref FT4) 1.78 uIU/mL (0.36-3.74)
[2024-05-01] MEDS: Folic Acid 1 MG TAB PO (07:51)
[2024-05-01] MEDS: Aspirin 81 MG CHEW PO (07:51)
[2024-05-01] MEDS: Enoxaparin 40 MG/0.4 ML SYR SC (07:52)
[2024-05-01] MEDS: Normal Saline Flush 10 ML SYR IVP ×2 (07:52→20:30)
[2024-05-01] MEDS: Pantoprazole 40 MG TABCR PO (07:52)
[2024-05-01 08:36] LABS: ESR 19 mm/hr (0-20)
[2024-05-01] MEDS: Insulin Glargine 300 UNITS/3 ML PEN 20 UNITS SC (08:39)
[2024-05-01] MEDS: Acetaminophen 325 MG TAB 650 MG PO (08:39)
[2024-05-01] MEDS: Insulin Aspart 300 UNITS/3 ML PEN SC ×3 (08:40→17:02)
--- NOTE | 2024-05-01 09:49 | W.PM.PROGNOT ---
Date of Service Date of service: 05/01/24 Time of Service: 09:49 Assessment and Plan Assessment and plan (1) CVA (cerebrovascular accident): Status: Chronic Assessment and plan: Non acute CVA seen in [facility] n[place], which could explain subacute left sided symptoms. She may have had additional infarct ba I appreciate teleneuro recommendations Will admit, color television console monitor, treat with statin and aspirin, and await availabilty of MRI, echo, carotid studies. Poor statin tolerance to simva, try rosuvastatin as we can get most effect with smallest dose. 05.01.24 Pt made aware that the rest of her work up will not be done until Friday most likely (2) Hypertension: Status: Chronic Assessment and plan: BP initially high but coming down with 5 mg amlodipine. With concern for CVA allow permissive HTN. 05.01.24 BP is currently at 148/86. Will restart BP meds tomorrow (3) DVT prophylaxis: Status: Acute Assessment and plan: enoxparin (4) Type 2 diabetes mellitus: Assessment and plan: A1c poorly controlled. Add basal insulin to GLP-1. She does not tolerate metformin for GI side effects. she will need additional education. (5) Headache: Status: Acute Assessment and plan: PT does complain of headache. At this point, I think she is having an atypical migraine 2/2 photophobia and nausea. Will give imitrex to see if this will help. I did also add an ESR for concerns about temporal arteritis although this would be highly unlikely Subjective Subjective Interval history since last seen: PT seen and examined in her room. Pt does c/o photophobia as well as a left sided temporal headache. Pt denies siginifcant history of migraines but does have a strong family history. Pt denies any pain with mastication and denies phonophobia. POC d/w pt as well as with bedside nurse during MDR Exam Narrative Exam Narrative: GEN: Alert and oriented x 4, pleasant and cooperative, gives a vague history. No acute distress at rest. HEENT: Head atraumatic. Conjunctiva clear, no icterus. PEERL, EOMI. no rhinorrhea. MMM, OP benign. Neck is supple with no masses or lymphadenopathy, trachea midline LUNGS: CTAB with normal effort CV: RRR with no murmurs, gallops, or rubs. ABD: active bowel sounds, soft, nontender and nondistended. No masses. EXT: no cyanosis, clubbing, or edema MSK: No joint redness or swelling NEURO: CN 2-12 intact, including visual field to confrontation. No pronator drift. Normal FNF, HTS. Normal strength and sensation of 4 extremities. Normal speech. DTRs symmetric in LE. No tremor SKIN: No rashes or open wounds. PSYCH: normal mood and affect Objective Last Vital Signs Temp 36.1 C L 05/01/24 07:21 Pulse 84 05/01/24 07:21 Resp 16 05/01/24 07:21 BP 148/86 H 05/01/24 07:21 Pulse Ox 96 05/01/24 07:21 Laboratory Results - last 24 hr 04/30/24 04/30/24 04/30/24 19:45 20:09 20:47 WBC 7.96 RBC 5.12 Hgb 14.4 Hct 42.2 MCV 82 MCH 28.1 MCHC 34.1 RDW 11.6 L Plt Count 279 MPV 9.6 Immature Gran % 0.8 Neutrophils % 58.0 Lymphocytes % 33.8 Monocytes % 6.4 Eosinophils % 0.6 Basophils % 0.4 Nucleated RBC % 0.0 Absolute Neutrophils 4.62 Absolute Lymphocytes 2.69 Absolute Monocytes 0.51 Absolute Eosinophils 0.05 Absolute Basophils 0.03 ESR PT Cancelled 9.7 INR Cancelled 1.0 APTT Cancelled 31.0 H Sodium Cancelled 138 Potassium Cancelled 3.7 Chloride Cancelled 102 Carbon Dioxide Cancelled 30.2 Anion Gap Cancelled 5.8 BUN Cancelled 15 Creatinine Cancelled 0.8 Est GFR (CKD-EPI 2020) Cancelled 91.40 Glucose Cancelled 236 H Hemoglobin A1c 11.5 H Calcium Cancelled 8.8 Total Bilirubin Cancelled 0.40 AST Cancelled 9 L ALT Cancelled 19 Alkaline Phosphatase Cancelled 80 Troponin I Cancelled 4 < 4 Total Protein Cancelled 6.9 Albumin Cancelled 3.2 L Triglycerides 207 H Total Cholesterol 155 LDL Cholesterol, Calc 68 HDL Cholesterol 46 TSH COVID-19 Source SARS-CoV-2 (PCR) Influenza Type A (PCR) Influenza Type B (PCR) RSV (PCR) Add-On Test Request 04/30/24 05/01/24 05/01/24 20:48 00:30 05:35 WBC RBC Hgb Hct MCV MCH MCHC RDW Plt Count MPV Immature Gran % Neutrophils % Lymphocytes % Monocytes % Eosinophils % Basophils % Nucleated RBC % Absolute Neutrophils Absolute Lymphocytes Absolute Monocytes Absolute Eosinophils Absolute Basophils ESR PT INR APTT Sodium Potassium Chloride Carbon Dioxide Anion Gap BUN Creatinine Est GFR (CKD-EPI 2020) Glucose Hemoglobin A1c Cancelled Calcium Total Bilirubin AST ALT Alkaline Phosphatase Troponin I Total Protein Albumin Triglycerides Cancelled Total Cholesterol Cancelled LDL Cholesterol, Calc Cancelled HDL Cholesterol Cancelled TSH COVID-19 Source Nasopharynx SARS-CoV-2 (PCR) Negative Influenza Type A (PCR) Negative Influenza Type B (PCR) Negative RSV (PCR) Negative Add-On Test Request DONE 05/01/24 06:04 WBC RBC Hgb Hct MCV MCH MCHC RDW Plt Count MPV Immature Gran % Neutrophils % Lymphocytes % Monocytes % Eosinophils % Basophils % Nucleated RBC % Absolute Neutrophils Absolute Lymphocytes Absolute Monocytes Absolute Eosinophils Absolute Basophils ESR 19 PT INR APTT Sodium Potassium Chloride Carbon Dioxide Anion Gap BUN Creatinine Est GFR (CKD-EPI 2020) Glucose Hemoglobin A1c Calcium Total Bilirubin AST ALT Alkaline Phosphatase Troponin I Total Protein Albumin Triglycerides Total Cholesterol LDL Cholesterol, Calc HDL Cholesterol TSH 1.78 COVID-19 Source SARS-CoV-2 (PCR) Influenza Type A (PCR) Influenza Type B (PCR) RSV (PCR) Add-On Test Request PAWSS Have you Been Recently Intoxicated or Drunk Within the Last 30 days?: No Have you Ever Experienced Previous Episodes of Alcohol Withdrawal?: No Have you ever Experienced Withdrawal Seizures?: No Have you ever Experienced Delirium Tremens(DT)s?: No Have you ever undergone Alcohol Rehabilitation Treatment (i.e, inpt ot outpatient treatment programs)?: No Have you ever Experienced Blackouts?: No Have you ever Combined Alcohol with other Downers within the last 90 days?: No Have you ever Combined Alcohol with any other Substance of Abuse during the last 90 days?: No Positive Blood Alcohol level on Presentation? [PCS.BAL]: No Evidence of Increased Autonomic Activity (i.e. HR>120, tremor, sweating, agitation, nausea)?: No Result: 0 Time Spent with Patient Time Spent with Patient: 35-49 minutes Time was spent: preparing to see the patient(eg.review tests), obtaining and/or reviewing separately otained hiistory, ordering medications,tests, procedures, referring, communicating with other health healthcare administration internship, indepentently interpreting results, counseling the patient and care coordination
[2024-05-01] MEDS: Acetaminophen 250 mg/Aspirin 250 mg/Caffeine 65 mg TAB 2 EACH PO (10:35)
[2024-05-01] MEDS: Ondansetron O.D.T. 4 MG TABEF 8 MG PO (11:41)
--- NOTE | 2024-05-01 15:58 | NUR.NOTE ---
Nursing Note: LMP 04/12/2024, Average cycle length is 32 days, and last approx 4 days. Pt states periods are often heavy for the first couple of days which is normal for her. HARMAN RN
--- NOTE | 2024-05-01 17:19 | INITIAL_ITS ---
Date of service: 05/01/24 Time of Service: 17:19 Care Management Initial Assmt Initial Assessment Reason for Hospitalization: CVA Functional Status/Living Situation Patient Presentation: Rochelle is sitting in a recliner visiting with her Robert when CM met with her. Pt is being closely followed and monitored for a CVA. Per pt, she has other family members that have also had strokes in their 40's. Rochelle has a PCP in [facility] where she previously lived, she is good so she hasn't established care anywhere else but wants to when she finds the right one. CM provided pt with a list of local PCP's. Town of Residence: [place] Resides with: Spouse (Robert) Significant Other/Family: Local Natural Supports: Employment Status: Employed (Self) Instrumental Activities of Daily Living (ADLs): Independent Medications Medication Management: No Issues/Barriers identified Advance Directives Advance Directives: Do you have an Advance Directive: N 04/16/23 19:10 AD On File at [facility]: N 03/26/23 18:28 Date Asked 04/30/24 04/30/24 18:10 AD Date Reviewed COLST On File at [facility] No 04/30/24 18:26 COLST Date Scanned Code Status Resuscitation Status Full Code Portal Pt does not currently have a portal and education provided: Yes Insurance Coverage/Financial Issues Insurance: Medicaid Financial Issues: Non identified Care Team Visit Care Team Role Provider [facility] [place] [facility] Primary Care Provider NURSE PRACTITIONER Aviva Fields RDN, [facility] Other Providers MALE INFERTILITY SPECIALIST Kristin Steward Other Providers MALE INFERTILITY SPECIALIST Ron Hsu RDN Other Providers MALE INFERTILITY SPECIALIST Erasto Jovel MD Emergency Provider [facility] STAFF PHYSICIAN Elmer Crockett Admit Provider [facility] STAFF PHYSICIAN Attending Provider Discharge Potential Discharge Needs: PCP F/U Appt and Other (Neurology ) Anticipated Barriers to Discharge: Medical Status Patient/Family Education Needs: Review discharge instructions, discuss Ask Me Three Transportation: Private vehicle Plan: Rochelle will need close community follow up when medically ready for discharge. Rochelle will follow up with her PCP in [facility] and Specialist, as recommended s/p CVA. Will transport home via private vehcle with family. CM will follow. Social Determinants of Health Screening Social Determinants of Health last assessed: 05/01/24 Will the Patient Participate in the Screening?: Yes Do you worry about having a steady place to live?: no Problems where you live: no known problems In the past 12 months, have you had to go without electric, gas, oil or water in your home?: no Have you or anyone in your house had to go without enough food to eat?: no Has lack of transportation kept you from medical appointments or from doing things needed for daily living?: no Has anyone in your life made you feel unsafe or unsupported?: no How hard is it for you to pay for the very basics like food, housing, medical care, and heating? Would you say it is:: Somewhat hard Do you want help finding or keeping work or a job?: I do not need or want help If for any reason you need help with day-to-day activities such as bathing, preparing meals, shopping, managing finances, etc., do you get the help you need?: I don?t need any help How often do you feel lonely or isolated from those around you?: Sometimes Do you speak a language other than [place] at home?: No Does the patient want assistance with any of the above?: No Health Related Social Needs Health related social needs: problems related to housing/economic circumstances (Z59.89) and feeling lonely/isolated (Z60.8) PFSH All Active Problems Headache (Acute) General counseling and advice on contraceptive management (Acute) DVT prophylaxis (Acute) Hypertension (Chronic) CVA (cerebrovascular accident) (Chronic) Medical History Type 2 diabetes mellitus Surgical History S/P removal of ovarian cyst Family History Mother Diabetes Heart disease Sister Diabetes Social History Smoking/Tobacco Use Status: Former Tobacco Use Smoking risk assessment performed?: Yes Alcohol Intake: current Alcohol Intake frequency: 0-2 drinks per day Substance use type: former substance user Housing: apartment Do you feel safe at home: Yes Do you feel safe in your relationship?: Yes Additional Social history: Lives with and 3 grandkids in [place]
[2024-05-01] MEDS: Ondansetron O.D.T. 4 MG TABEF PO (20:28)
[2024-05-01] MEDS: Rosuvastatin 20 MG TAB PO (20:28)
[2024-05-02 03:10] VITALS: BP 143/81; PULSE 75; RESP 17; TEMP 36.7; O2SAT 97
[2024-05-02 06:45] LABS: Abs Immature Grans 0.04 10^3/uL (0.0-0.06); Absolute Basophil Count 0.04 10^3/uL (0.0-0.2); Absolute Eosinophil Count 0.12 10^3/uL (0.0-0.7); Absolute Lymphocyte Count 2.42 10^3/uL (1.2-3.4); Absolute Monocyte Count 0.62 10^3/uL (0.1-0.8); Basophils % 0.5 %; Eosinophils % 1.6 %; HCT 40.2 % (36.0-46.0); HGB 13.6 g/dL (11.2-15.7); Immature Grans % 0.5 %; MCH 27.9 pg (27.0-33.0); MCHC 33.8 % (32.0-36.0); MCV 83 fL (80-95); MPV 9.6 fL (8.0-11.0); Monocytes % 8.4 %; Platelet Count 260 10^3/uL (130-400); RBC 4.87 10^6/uL (3.93-5.22); RDW 11.7 % (11.7-14.6); RDW-SD 34.7 fL; WBC 7.34 10^3/uL (4.4-10.8)
[2024-05-02 07:07] VITALS: BP 134/85; PULSE 77; RESP 18; TEMP 36.6; O2SAT 97
[2024-05-02 07:12] LABS: ALT 18 U/L (14-59); AST 11 U/L (15-37); Albumin 2.9 g/dL (3.4-5.0); Alkaline Phosphatase 66 U/L (46-116); Anion Gap 6.9 mmol/L (3-11); BUN 16 mg/dL (7-18); Bilirubin, Total 0.51 mg/dL (0.2-1.0); CO2 31.1 mmol/L (21.0-32.0); CREATININE 0.9 mg/dL (0.55-1.02); Calcium 8.6 mg/dL (8.5-10.1); Chloride 101 mmol/L (98-107); Estimated GFR 79.35 (mL/min/1.73m2); Glucose 251 mg/dL (74-106); Potassium 3.6 mmol/L (3.5-5.1); Sodium 139 mmol/L (136-145); Total Protein 6.2 g/dL (6.4-8.2)
[2024-05-02] MEDS: Folic Acid 1 MG TAB PO (07:45)
[2024-05-02] MEDS: Enoxaparin 40 MG/0.4 ML SYR SC (07:45)
[2024-05-02] MEDS: Acetaminophen 325 MG TAB 650 MG PO (07:46)
[2024-05-02] MEDS: Insulin Aspart 300 UNITS/3 ML PEN SC ×3 (07:46→16:55)
[2024-05-02] MEDS: Insulin Glargine 300 UNITS/3 ML PEN 20 UNITS SC (07:46)
[2024-05-02] MEDS: Aspirin 81 MG CHEW PO (07:46)
[2024-05-02] MEDS: Pantoprazole 40 MG TABCR PO (07:46)
[2024-05-02] MEDS: Normal Saline Flush 10 ML SYR IVP ×2 (07:48→20:05)
--- NOTE | 2024-05-02 11:07 | W.PM.PROGNOT ---
Date of Service Date of service: 05/02/24 Time of Service: 11:07 Assessment and Plan Assessment and plan (1) CVA (cerebrovascular accident): Status: Chronic Assessment and plan: Ct showed a non-acute CVA in R thalmus most likely the etiology of her left- sided symptoms. MRI to confirm and r/o new infarct on Friday Continue interventions as per teleneuro recommendations continue aspirin, and rosuvastatin Poor statin tolerance to simvastatin listed might not be the whole drug class (2) Hypertension: Status: Chronic Assessment and plan: Permissive HTN initially allowed in the setting of CVA Received Amlodipine 5 mg po X1 d/t BP 222/123 w resolution 05.01.24 BP is currently at 134//85 to 150/90. With previous history of stroke by lesion seen on CT, proteinuria in the setting of DM II- will start low dose ACEI w lisinopril (3) DVT prophylaxis: Status: Acute Assessment and plan: Continue LMWH (4) Type 2 diabetes mellitus: Assessment and plan: A1c at 11.51 on admission . Continue Gluc Ac & HS with SSI coverage and basal bolus of insulin- dose adjusted up to 50% of lispro taken in 24 hours . Today will give an additional 10 units of Lantus - AM dosage will be 30 units on Friday . The patient is on GLP-1 at home and dose not tolerate metformin d/t GI AE Nutrition/ healthcare educator consult (5) Headache: Status: Acute Assessment and plan: Patient initially c/o headache to left temporal area. Provider mentioned the possibility of an atypical migraine with 2/2 photophobia and nausea. Triptans not indicated at this time as per point 1.Treated with excedrin X1 on 05/01 with improvement No further photophobia/nausea reported today discussed with Dr. Gonzalez Subjective Subjective Patient reports: no new complaints, tolerating liquids well, tolerating a regular diet and other (left temporal mild WOO); denies diarrhea, nausea, vomiting, shortness of breath or fever Exam Narrative Exam Narrative: Constitutional The patient is sitting in chair/ lying in bed comfortable and cooperative during the interview. The patient is well groomed without acute distress and has average body habitus/is obese/ is thin. HENMT: Head is atraumatic, normocephalic with aspherical naso-labial folds w/o facial droop, left sided numbness from inner canthus level Eyes: Well aligned, intact ROM Neck: Normal ROM, no meningeal signs Neuro:alert and oriented X4, cranial nerve II to XII intact; no l focal deficit, PERRLA on ambient light Resp:Clear lung bilaterally Cardio:Telemetry SR 80's regular rhythm, S1, S2, no murmur : Negative Costovertebral angle tenderness Integumentary: No skin lesions or rash seen on exposed Extremities: strength 5/5 to bilateral lower and upper extremities Psych: RASS 0, congruent mood and normal affect. Objective Last Vital Signs Temp 36.6 C 05/02/24 07:07 Pulse 77 05/02/24 07:07 Resp 18 05/02/24 07:07 BP 134/85 05/02/24 07:07 Pulse Ox 97 05/02/24 07:07 Laboratory Results - last 24 hr 05/02/24 06:06 WBC 7.34 RBC 4.87 Hgb 13.6 Hct 40.2 MCV 83 MCH 27.9 MCHC 33.8 RDW 11.7 Plt Count 260 MPV 9.6 Immature Gran % 0.5 Neutrophils % 56.0 Lymphocytes % 33.0 Monocytes % 8.4 Eosinophils % 1.6 Basophils % 0.5 Nucleated RBC % 0.0 Absolute Neutrophils 4.10 Absolute Lymphocytes 2.42 Absolute Monocytes 0.62 Absolute Eosinophils 0.12 Absolute Basophils 0.04 Sodium 139 Potassium 3.6 Chloride 101 Carbon Dioxide 31.1 Anion Gap 6.9 BUN 16 Creatinine 0.9 Est GFR (CKD-EPI 2020) 79.35 Glucose 251 H Calcium 8.6 Total Bilirubin 0.51 AST 11 L ALT 18 Alkaline Phosphatase 66 Total Protein 6.2 L Albumin 2.9 L PAWSS Have you Been Recently Intoxicated or Drunk Within the Last 30 days?: No Have you Ever Experienced Previous Episodes of Alcohol Withdrawal?: No Have you ever Experienced Withdrawal Seizures?: No Have you ever Experienced Delirium Tremens(DT)s?: No Have you ever undergone Alcohol Rehabilitation Treatment (i.e, inpt ot outpatient treatment programs)?: No Have you ever Experienced Blackouts?: No Have you ever Combined Alcohol with other Downers within the last 90 days?: No Have you ever Combined Alcohol with any other Substance of Abuse during the last 90 days?: No Positive Blood Alcohol level on Presentation? [PCS.BAL]: No Evidence of Increased Autonomic Activity (i.e. HR>120, tremor, sweating, agitation, nausea)?: No Result: 0 Time Spent with Patient Time Spent with Patient: >50 minutes Time was spent: preparing to see the patient(eg.review tests), obtaining and/or reviewing separately otained hiistory, ordering medications,tests, procedures, referring, communicating with other health home care companion, indepentently interpreting results, counseling the patient and care coordination
[2024-05-02 11:22] VITALS: BP 119/77; PULSE 80; RESP 18; TEMP 36.8; O2SAT 97
[2024-05-02] MEDS: Insulin Glargine 300 UNITS/3 ML PEN 10 UNITS SC (11:58)
[2024-05-02] MEDS: Acetaminophen 250 mg/Aspirin 250 mg/Caffeine 65 mg TAB 2 EACH PO (12:00)
--- NOTE | 2024-05-02 13:48 | IN_ITS ---
PT Notes Visit Reasons: Cerebrovascular accident Physical Therapy Initial Evaluation Date: 05/02/2024 Referring Doctor: Janice Singh, NATALYA Orders: PT CONSULT: Safety consult for discharge Precautions: Standard, telemetry, IV access left upper extremity Patient Profile/Admitting Diagnosis: Patient is a 48-year-old female presented to the ED on 04/30/2024 with falls, most recent 2 days ago, headache and left retro-orbital associated with nausea and tearing of the eye, left-sided face and arm numbness x 5 days. Patient reported subtle weakness on the left side after a fall 1 year ago then 1 to 2 months ago she fell forward hitting left forehead. BP initially in the ED 228/112 and bizarre affect head CT was performed showing nonacute right thalamus infarct. Patient diagnosed with hypertension and a CVA. Teleneuro consult recommended cardiac monitoring, treating with statin and aspirin, MRI, echo and carotid studies. Patient admitted to the Medr unit for medical monitoring and PT consult placed on this date. PMHX: Type II DM, status post ovarian cyst removal Social History/Home Situation: Patient resides in single-family home with her and 4 children. She has 6 steps with 2 rails to enter and a flight of stairs to her bedroom with 1 rail. Patient independent ambulation, ADLs, driving, meal preparation and household management. 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 Equipment Owned/DME: None Subjective: Patient reports some numbness to left side of face and lips bilaterally with tenderness to touch at left methodist. She denies numbness tingling left arm and leg although notes heaviness. She reported choking episode on turkey on 05/01(speech consult in place). She reports difficulty focusing on objects even with her glasses on. She reports having difficulty holding her book or phone with left hand for extended period of time. Patient reported this morning she needed to lean against the wall after standing for 6 to 8 minutes while looking out the window due to fatigue. Objective: General Observation: Female presented sitting in chair. Telemetry in place. IV access left upper extremity Mental Status: Alert and oriented x 4 slow responses to questions intermittent word finding deficits noted flat affect Pain: Tenderness to left methodist denies it as pain ROM: [] Right Upper Extremity: Within normal limits Left Upper Extremity: Within normal limits positive discomfort noted with external rotation, flexion greater than 90 degrees and abduction greater than 90 degrees Right Lower Extremity: Within normal limits Left Lower Extremity: Within normal limits Strength: Right Upper Extremity: 5/5 Left Upper Extremity: 4 -/5 Right Lower Extremity: 5/5 throughout Left Lower Extremity:Hip flexion: 3/5; hip abduction: 3/5; hip extension: 3/5; knee extension: 3+/5; knee flexion: 4 -/5 ankle DF: 4/5 ; ankle PF: 4 -/5 Sensation: Intact left upper extremity lower extremity and face although reports left side of face feels different than the rest of her body when it is touched Coordination: Rapid alternating movements symmetrical although reduced speed noted, [id number] noted accuracy with slow motion some discomfort in left shoulder with target above 90 degrees. Bed Mobility/Transfers: Supine to sit independent Sit to stand [] SBA Stand to sit SBA Bed to chair SBA Gait: ambulates without assistive device standby assist 200 feet demonstrating slow marlene narrow base of support impaired arm swing bilateral. Patient reported increased heaviness in left lower extremity after distance of 120 feet . Stairs: 5 steps with 2 rails standby assist reciprocal pattern Balance: [] Static Sitting: Normal Dynamic Sitting: Good Static Standing: Good with increased time patient noted to have increased sway Dynamic Standing: Fair plus Special Tests: 4 STAGE BALANCE TEST: Feet together 10 seconds 1/2 Stance 10 seconds patient noted to have increased sway at 7 seconds Tandem stance 7 seconds Single leg stance left 5 seconds, right 7 seconds Mobility Limitations Standardized Measure [] [facility] AM-PAC 6 clicks Basic Mobility Inpatient Short Form: [] Raw Score: 21 CMS Score: 28.97% Informed Consent/Education: Patient instructed in purpose of PT consult. Assessment: Patient is a 48-year-old female presents with clinical signs and symptoms consistent with current/admitting diagnoses of CVA that have resulted to mobility limitations, gait instability, generalized weakness, and impairment of motor control as demonstrated by the following impairment level findings: 1. Decreased strength to left UE and LE major muscle groups 2. Impaired standing balance 3. Decreased functional activity tolerance and standing 4. Word finding deficits Impairments are contributing to the following functional limitations: 1. Inability to safely ambulate without assistive device 2. Increase completion time for mobility ADL performance 3. Increased fall risk 4. Difficulty performing stairs safely without assistance Patient is assessed as a moderate complexity based on the following: History: 48-year-old female with impairment level findings, functional limitations, and past medical history as indicated above Examination: Demonstrable impairment in strength, balance, and mobility level with underlying impairments and functional limitations as documented above Presentation: Evolving Decision Making: Moderate Goals: 1. Independent ambulation level surfaces greater than 300 feet demonstrating reciprocal pattern without reports of heaviness in left lower extremity 2. Supervised ascending/descending 13 stairs with 1 railing to get to bedroom within home Plan of Care/Treatment Plan: 1-2x/day, 7 days/week x 1 week. Plan of care has been reviewed with the BRAZING FURNACE OPERATOR providing the service under Physical Therapy direction. Initiate Physical Therapy intervention for strengthening, bed mobility, transfers, gait, stairs, balance training, use of assistive device. DISCHARGE RECOMMENDATIONS: Home with outpatient PT TREATMENT CODE/TIME: 77790 x 20 minutes for 1 unit,17415 x 29 minutes for 2 units/[id number] Thank you for the opportunity to participate in the care of this patient. Marcelina Yanes, PT [facility]
[2024-05-02] MEDS: Lisinopril 5 MG TAB 2.5 MG PO (14:35)
[2024-05-02 15:05] VITALS: BP 164/86; PULSE 91; RESP 17; TEMP 37.1; O2SAT 98
[2024-05-02 19:28] VITALS: BP 145/86; PULSE 84; RESP 16; TEMP 36.7; O2SAT 99
[2024-05-02] MEDS: Rosuvastatin 20 MG TAB PO (20:04)
[2024-05-02 23:24] VITALS: BP 113/64; PULSE 81; RESP 16; TEMP 36.9; O2SAT 96
[2024-05-03] MEDS: Ondansetron O.D.T. 4 MG TABEF PO (04:29)
[2024-05-03 04:31] VITALS: BP 145/82; PULSE 88; RESP 16; TEMP 36.2; O2SAT 99
[2024-05-03 06:31] LABS: Abs Immature Grans 0.03 10^3/uL (0.0-0.06); Absolute Basophil Count 0.03 10^3/uL (0.0-0.2); Absolute Lymphocyte Count 2.07 10^3/uL (1.2-3.4); Absolute Monocyte Count 0.56 10^3/uL (0.1-0.8); Absolute Neutrophil Count 4.46 10^3/uL (1.2-6.7); Basophils % 0.4 %; Eosinophils % 1.4 %; HCT 39.7 % (36.0-46.0); HGB 13.7 g/dL (11.2-15.7); Immature Grans % 0.4 %; Lymphocytes % 28.6 %; MCH 28.2 pg (27.0-33.0); MCHC 34.5 % (32.0-36.0); MCV 82 fL (80-95); MPV 9.6 fL (8.0-11.0); Monocytes % 7.7 %; Neutrophils % 61.5 %; Platelet Count 261 10^3/uL (130-400); RBC 4.85 10^6/uL (3.93-5.22); RDW 11.8 % (11.7-14.6); RDW-SD 34.5 fL; WBC 7.25 10^3/uL (4.4-10.8)
[2024-05-03 06:42] LABS: Anion Gap 9.8 mmol/L (3-11); BUN 17 mg/dL (7-18); CO2 29.2 mmol/L (21.0-32.0); CREATININE 0.9 mg/dL (0.55-1.02); Calcium 8.5 mg/dL (8.5-10.1); Chloride 103 mmol/L (98-107); Estimated GFR 79.35 (mL/min/1.73m2); Glucose 186 mg/dL (74-106); Potassium 3.7 mmol/L (3.5-5.1); Sodium 142 mmol/L (136-145)
--- NOTE | 2024-05-03 07:00 | DI.MRI_ITS ---
Exam(s) MR BRAIN WO EXAM: MR BRAIN WO CLINICAL HISTORY: cva TECHNIQUE: Multiplanar multisequence MRI of the brain was performed. COMPARISON: CT CT HEAD WO from 04/30/2024 FINDINGS: VENTRICLES AND EXTRA AXIAL SPACES: Normal in size and morphology for the patient's age. MIDLINE SHIFT: None. CEREBRAL PARENCHYMA: No focus of restricted diffusion to suggest acute infarct. Old lacunar infarct right thalamus. No space-occupying lesion identified. No significant atrophy. Mild scattered foci o f high signal in the white matter consistent with sequela of chronic microvascular disease. BRAINSTEM/CEREBELLUM: Normal. VISUALIZED PARANASAL SINUSES: Clear. MASTOIDS:Clear. Vasculature: Normal flow void. PITUITARY GLAND: Partially empty sella. ORBITS: Unremarkable. IMPRESSION: No evidence of acute infarct. Old lacunar infarct right thalamus. DATA REPOSITORY:
--- NOTE | 2024-05-03 07:00 | DI.US_ITS ---
Exam(s) US CAROTID EXAM: US CAROTID CLINICAL HISTORY: cva. TECHNIQUE: Ultrasound carotids performed using grayscale, color-flow, and spectral Doppler imaging. COMPARISON: No exams were available for comparison FINDINGS: RIGHT CAROTID ARTERY: Plaque: Minimal noncalcified plaque at common carotid bulb.. Velocity elevation: None. LEFT CAROTID ARTERY: Plaque: Minimal. Velocity elevation: None. VERTEBRAL ARTERIES: Antegrade flow. Measurements: R Bulb: 76.9cm/s PS / 26.8cm/s ED R CCA: 86.7cm/s PS / 21.9cm/s ED R ECA: 120.3cm/s PS / 16.2cm/s ED R ICA Prox: 85.6cm/s PS / 34.7cm/s ED R ICA Mid: 89.1cm/s PS / 33.4cm/s ED R ICA Distal: 83cm/s PS /31cm/s ED R Vert: 57.2cm/s PS / 8.4cm/s ED R SVR: 1 R DVR: 1.5 L Bulb: 93.8cm/s PS / 26.5cm/s ED L CCA: 86.3cm/s PS / 27.2cm/s ED L ECA: 89.3cm/s PS / 7.6cm/s ED L ICA Prox: 76.1cm/s PS / 33.9cm/s ED L ICA Mid: 78.7cm/s PS / 33.5cm/s ED L ICA Distal: 74.6cm/s PS / 27.3cm/s ED L Vert: 60cm/s PS / 14.9cm/s ED L SVR: 1.1 L DVR: 1 IMPRESSION: No evidence for hemodynamically significant carotid stenosis. Criteria for Carotid Stenosis: Normal: ICA PSV <125 cm/s no plaque or intimal thickening is visible. <50% stenosis: ICA PSV <125 cm/s and plaque or intimal thickening is visible. 50-69% stenosis: ICA PSV is 125-250 cm/s and plaque is visible. >70% stenosis to near occlusion: ICA PSV >250 cm/s with visible plaque and luminal narrowing. DATA REPOSITORY:
[2024-05-03 07:37] VITALS: BP 166/91; PULSE 86; RESP 20; TEMP 36.9; O2SAT 98
[2024-05-03] MEDS: Lisinopril 5 MG TAB 2.5 MG PO (07:48)
[2024-05-03] MEDS: Normal Saline Flush 10 ML SYR IVP ×2 (07:48→20:05)
[2024-05-03] MEDS: Aspirin 81 MG CHEW PO (07:48)
[2024-05-03] MEDS: Insulin Aspart 300 UNITS/3 ML PEN SC ×3 (07:48→17:03)
[2024-05-03] MEDS: Enoxaparin 40 MG/0.4 ML SYR SC (07:48)
[2024-05-03] MEDS: Pantoprazole 40 MG TABCR PO (07:49)
[2024-05-03] MEDS: Docusate Sodium 100 MG CAP PO (07:49)
[2024-05-03] MEDS: Folic Acid 1 MG TAB PO (07:49)
[2024-05-03] MEDS: Insulin Glargine 300 UNITS/3 ML PEN 30 UNITS SC (08:04)
--- NOTE | 2024-05-03 08:54 | SP_ITS ---
Date of service: 05/03/24 Time of Service: 08:10 Subjective Clinical (Bedside) Swallow Evaluation Speech Language Pathology Referred by: Janice Singh Referral Type: Clinical Swallow Evaluation Cognitive/Communication Evaluation Reason for Referral/HPI: Rochelle Cagle is a 48 yo female with PMH significant for type 2 DM and HTN who was adm with L side weakness. CT of the head revealed non-acute R thalamic CVA; MRI pending. She presents currently with complaints of lips and L cheek numbness, word retrieval delay, and slow thinking/memory. LIFE SKILLS COORDINATOR VOLUNTEER IMPRESSIONS & RECOMMENDATIONS: Rochelle presents with suspected at least mild cognitive-communication impairments, with impairments in attention/executive functioning/delayed recall. She reports visual focus feels 'off', which may have impacted performance. Rochelle achieved a score of 22/30 on the [place] Cognitive Assessment (MOCA). Insight/awareness of errors was good. She reports delay in pulling her words, though no evidence of aphasia, suspect cognitive origin. Rochelle is noted to speak with clear articulation and hypophonic/monotone voice though no dysarthria/apraxia evident and she notes speech/voice is at baseline. In regards to swallowing, oral mechanism examination and PO trials WFL this date. Rochelle reports she has had two choking episodes (eggs, turkey) since admitted though notes her dysphagia is longstanding for the last several years, characterized by severe reflux, food sticking, vomiting after meals, waking up choking in middle of night, belching/gas after meals. She has not seen GI, has not gotten worked up due to competing issues per her report. She is on pantoprazole but does not feel this is fully helping. Symptoms have worsened since starting Ozempic. No worsening/acuity to dysphagia. Rochelle would benefit from outpatient LIFE SKILLS COORDINATOR VOLUNTEER for cognitive-communication therapy. Outpatient GI indicated for dysphagia symptoms. FURTHER LIFE SKILLS COORDINATOR VOLUNTEER SERVICES: Patient to be followed while on unit. Upon Discharge, outpatient consult requested Diet Recommendations: SOLIDS: Regular (consider soft/cut up for GI reasons) LIQUIDS: Thin MEDICATIONS: As tolerated SUPERVISION: Distant SUBJECTIVE: Patient received alert/awake, agreeable to evaluation Pain Reported? 4/10 headache Baseline Swallow Function: See above re: baseline esophageal dysphagia PO Trials Assessed: IDDSI 0 Thin Liquids IDDSI 6 Soft & Bite Size Solid (dry oatmeal, diced fruit Oral Mechanism Examination: Dentition is WFL. Oral mucosa is WFL. Cranial Nerve Assessment: CN V ? Trigeminal Facial Sensation WNL Jaw Strength/ROM WNL ?WNL CN VII- Facial WNL labial ROM, strength, coordination. WNL lingual sensation WNL CN IX ? Glossopharyngeal WNL palatal elevation with phonation. No evidence of nasal emissions WNL CN X ? Vagus WNL Vocal quality and volume. Strong/sharp volitional cough WNL CX XII ? Hypoglossal WNL lingual ROM, strength, coordination WNL Oral Phase Findings: WFL Pharyngeal Phase Findings: WFL Esophageal Phase Findings: Endorsed stasis Belching after meal COGNITIVE COMMUNICATION: Kristin Thejose Picture: WNL syntax, word choice, thought formulation Bradley Naming Test Short Form: =04/04 + 3 with phonemic prompt Reading Aloud/[place] Passage: Delayed, pt reports due to visual focus feeling 'off'. [place] Cognitive Assessment: Virgin Making 0/1 Cube Copying 1/1 Clock Drawing 2/3 Hands opposite length Animal Naming 3/3 Digit Recall 2/2 Letter Tapping 1/1 Serial 7 Subtraction 2/3 Sentence Repetition 1/2 Word Fluency 0/1 6 /f/ words per minute, norm=11 Abstraction 1/2 Delayed Recall 2/5 + 1 with category cue, + 2 with field of 3 options Memory Index Scale 02/02 MOCA Total 22/30 + 1 point added for 12 years education WNL=26+/30 ASSESSMENT: Further LIFE SKILLS COORDINATOR VOLUNTEER Services indicated. Patient to be followed while on unit. Recommendation at Discharge:LIFE SKILLS COORDINATOR VOLUNTEER Outpatient Services Suggested Referrals: Gastroenterology RISK MANAGEMENT: [place] upright for all PO intake, remain upright at least 60 min after eating Oral hygiene BID/2x per day Avoid meals/snacks 2-3 hours prior to reclining/sleeping Sleep with head of bed elevated to reduce likelihood of nocturnal reflux Education Provided to: Patient Topics Addressed: LIFE SKILLS COORDINATOR VOLUNTEER findings and recommendations PLAN: Frequency: 1-2x/week for 1-2 weeks Goals: Shelter Goals: Patient will remain free from aspiration-related illness, malnutrition, and dehydration. Short Term Goals: Patient will participate in ongoing diagnostic treatment addressing areas of cognitive communication. Patient will tolerate regular Diet and Thin liquids without overt s/s aspiration across 2/2 visits. LIFE SKILLS COORDINATOR VOLUNTEER CPT Code: 25131 Clinical Swallowing Evaluation [phone] (20 min) [id number]?Evaluation of speech sound production with evaluation of language comprehension and expression [phone] (25 min) TOTAL TIME: 45 Minutes
--- NOTE | 2024-05-03 08:57 | PDOC.CMPRO ---
Date of service: 05/03/24 Time of Service: 08:57 Care Management Progress Note Progress Note Text Progress Note Text: Rochelle is sitting in a recliner visiting with her Robert when CM met with her. She continues to have tingling sensation on the left side of her face. Further medical workup is being done, awaiting MRI and ST eval. PT recommends discharge home with outpatient PT when medically ready for discharge. Rochelle's PCP is in [facility] and she has been thinking about establishing care locally, in the meantime she is still planning on seeing PCP at [facility]. Maurice was provided with a list of local PCP's for future use. CM will continue to follow. Discharge Potential Discharge Needs: PCP F/U Appt (Roger Ellis, [facility]) and Other (Neurology, if recommended.) Anticipated Barriers to Discharge: Medical Status Patient/Family Education Needs: Review discharge instructions, discuss Ask Me Three Transportation: Private vehicle Plan: Rochelle continues to have tingling on the left side of her face. Pt requires further evaluation and monitoring. Teleneuro consult was done on 04/30/24. Anticipate Rochelle will discharge home with a plan to follow up with community providers (PCP, Neurology etc.) and discharge plan of care as directed. Will transport via private vehicle with her . Patient will need a letter for work on discharge. CM will follow. Social Determinants of Health Screening Social Determinants of Health last assessed: 05/03/24 Will the Patient Participate in the Screening?: Yes Do you worry about having a steady place to live?: no Problems where you live: no known problems In the past 12 months, have you had to go without electric, gas, oil or water in your home?: no Have you or anyone in your house had to go without enough food to eat?: no Has lack of transportation kept you from medical appointments or from doing things needed for daily living?: no Has anyone in your life made you feel unsafe or unsupported?: no How hard is it for you to pay for the very basics like food, housing, medical care, and heating? Would you say it is:: Somewhat hard Do you want help finding or keeping work or a job?: I do not need or want help If for any reason you need help with day-to-day activities such as bathing, preparing meals, shopping, managing finances, etc., do you get the help you need?: I don?t need any help How often do you feel lonely or isolated from those around you?: Sometimes Do you speak a language other than Georgian at home?: No Does the patient want assistance with any of the above?: No Health Related Social Needs Health related social needs: problems related to housing/economic circumstances (Z59.89) and feeling lonely/isolated (Z60.8)
[2024-05-03 11:37] VITALS: BP 135/83; PULSE 82; RESP 20; TEMP 37.1; O2SAT 100
--- NOTE | 2024-05-03 11:37 | PHA.REVIEW2 ---
Pharmacy Admission Review Admission Clinical Review Admission Pharmacy Review: Headache (Acute) DVT prophylaxis (Acute) latex Allergy (Intermediate, Unverified 04/30/24 18:12) Hives oxycodone (From Percocet) Allergy (Intermediate, Unverified 04/30/24 18:12) Itching simvastatin Allergy (Intermediate, Unverified 04/30/24 18:12) Itching sulfamethoxazole (From Bactrim) Allergy (Intermediate, Unverified 04/30/24 18:12) Itching trimethoprim (From Bactrim) Allergy (Intermediate, Unverified 04/30/24 18:12) Itching empagliflozin (From Jardiance) Adverse Reaction (Intermediate, Unverified 04/30/24 21:08) Other (See Comment) Resuscitation Status Full Code Height 5 ft 8 in Weight 103.169 kg Pharmacy Admission Review Renal Dosing Renal Dosing: BUN 17 mg/dL (7-18) 05/03/24 06:15 Creatinine 0.9 mg/dL (0.55-1.02) 05/03/24 06:15 Medications needing adjustments: Reviewed (CrCl 97.11 mL/min) List of meds needing interventions: Current medications are okay Anticoagulation Anticoagulation: Hgb 13.7 g/dL (11.2-15.7) 05/03/24 06:15 Hct 39.7 % (36.0-46.0) 05/03/24 06:15 Plt Count 261 10^3/uL (130-400) 05/03/24 06:15 INR 1.0 (0.9-1.1) 04/30/24 20:09 Creatinine 0.9 mg/dL (0.55-1.02) 05/03/24 06:15 DVT Prophylaxis: Reviewed Medications: Enoxaparin (40mg daily) Relevant Labs Relevant Labs: ESR 19 mm/hr (0-20) 05/01/24 06:04 Sodium 142 mmol/L (136-145) 05/03/24 06:15 Potassium 3.7 mmol/L (3.5-5.1) 05/03/24 06:15 Chloride 103 mmol/L (98-107) 05/03/24 06:15 Electrolytes, C-Reactive P, ESR: Reviewed DM Control DM Control: Glucose 186 mg/dL (74-106) H 05/03/24 06:15 Hemoglobin A1c Cancelled 05/01/24 05:35 Finger Stick Blood Glucose 261 1141 Finger Stick Blood Glucose 261 1135 Finger Stick Blood Glucose 205 1135 Finger Stick Blood Glucose 205 0804 Finger Stick Blood Glucose 205 0748 Finger Stick Blood Glucose 205 0736 DM Control: Reviewed Insulin Dosing, Diabetic Medication: Has order for SS insulin and glargine 30 units every morning Cardiac Review Cardiac Review: Troponin I < 4 ng/L (<or=51) 04/30/24 20:47 Blood Pressure 135/83 1137 Blood Pressure 166/91 0737 Blood Pressure 145/82 0431 BP, HR, EF%: Reviewed (HR WNL) List meds needing interventions: Has order for lisinopril 2.5mg daily QTc Review QTc: Reviewed (450 from 04/30/24) IV to PO Switch IV Medications: Reviewed (metoclopramide) Home Meds Home Med List reviewed: Intervened Relevent Home Meds Not ordered & why?: Called nurse to confirm when patient uses Ozempic. Per nurse patient uses on Wednesdays. I changed order to patients own and set for Wednesdays. Informed nurse that patient will need to have brought in from home (non-formulary). Current Meds Current Medication Order Review: Reviewed
--- NOTE | 2024-05-03 13:57 | W.INDIABCONS ---
Date of service: 05/03/24 Time of Service: 13:57 Diabetes Inpatient Consult Reason for Visit: diabetes mgt/education consult DESCRIPTION/ASSESSMENT: Pt is 48yo female PT being treated CVA. PMH significant for HTN, stage II obesity (per current BMI of 34.6). A1C was 11.5 on 04/30. Pt unable to tolerate Metformin with GI Sx. PT has allergy noted to empagliflozin -makes her angry and notes this happened with her mother as well. Home meds include semaglutide, lantus and novolog - pt shares she has not been using insulin lately She has been started on lisinopril for OREN she is on Crestor and aspirin therapy fasting glucose was 180 05/03 morning and was increased to 30u glargine, with Novolog ordered TID for corrections with moderate sliding scale. MEaltime fingersticks 199 or greater since admission. Total protein and albumin lab low yesterday. GFR >70 electroytes wnl - no magnesium lab met with patient today who expresses lack of checking her glucose and hasn't been compliant with insulin rx's. She has a CGM but has not worn due to latex allergy and gets itchy with it. Has capillary glucometer as well but not been using. Has trouble swallowing at times - speech saw her 05/03 and suggested outpatient services. We had a discussion about CVA and other cardiovascular issues that hyperglycemia makes worse. She is open to work at better management of glucose and took my card to contact and make outpatient appt with after d/c will follow up with phone call if I don't hear from her x 1week. Recommend: -vitamin D lab -magnesium lab -Urine Albumin to Creatinine ratio lab -continue titrating insulin to glucose targets INTERVENTION: will follow up with phone call x1 week for offering outpt services Time Spent in Nutritional Counseling and Treatment: 15vminutes
[2024-05-03] MEDS: Acetaminophen 325 MG TAB 650 MG PO ×2 (14:22→23:46)
--- NOTE | 2024-05-03 14:24 | PT.INTREAT ---
PT Notes Visit Reasons: Cerebrovascular accident Inpatient Physical Therapy Treatment Note [facility] Date: 05/03/24 SUBJECTIVE: Rochelle unavailable t/o am due to testing. PM session: Rochelle reports that she is feeling better since taking a shower. Unfortunately she has concern about the sensation she is experiencing on the left scalp/face. My testing came back normal, why is my face and head still feeling this way. Rochelle state that she is unable to describe the sensation, denies pain, or tingle. It's sort of numb. she reports that her grandfather this am so I am dealing with that. OBJECTIVE: []? VITALS: ?monitored by [place]ston. Therapeutic Activities ([id number]): Direct one-on-one instruction in dynamic activities to improve functional performance. ? BED MOBILITY/TRANSFERS? seated in recliner? Sit-stand: I ? Stand-sit: I? GAIT? Assistive Device: none ? Weight bearing: full Assist:SBA? Distance:?approx 400'? Deviation: slow.? STAIRS:ascend/descend clinic steps. 2, 6 steps and 3, 4 steps with one rail and SBA. ? ASSESSMENT:? tolerated session well. Noted one slight LOB to left when she turned to look over left shld. She was able to recover independently. I noted that she constantly tapped her scalp and face on left side. No c/o fatigue or heaviness in left LE as she did yesterday. PLAN: will continue to progress her strength and functional mobility following PT POC. TREATMENT CODE/TIME: 20 min. [id number] DISCHARGE RECOMMENDATION: home with out pt PT.
[2024-05-03 15:03] VITALS: BP 119/74; PULSE 75; RESP 20; TEMP 37; O2SAT 98
--- NOTE | 2024-05-03 18:21 | PGE_ITS ---
Date of Service Date of service: 05/03/24 Time of Service: 18:21 Assessment and Plan Assessment and plan (1) CVA (cerebrovascular accident): Status: Chronic Assessment and plan: MRI neg for stroke Continue teleneuro recommendations continue aspirin, and rosuvastatin No neuro deficits Moves everything well. (2) Hypertension: Status: Chronic Assessment and plan: BP 119/74 (3) DVT prophylaxis: Status: Acute Assessment and plan: Continue enoxaparin (4) Type 2 diabetes mellitus: Assessment and plan: A1c at 11.51 on admission . Continue Gluc Ac & HS with SSI coverage and basal bolus of insulin- Nutrition/ aircraft seat upholsterer consult (5) Headache: Status: Resolved Assessment and plan: No complaint of headache today (6) Pain, dental: Status: Acute Assessment and plan: Left upper dental pain, states there was a blood blister that popped and now she has pain left side of her face, left ear, left upper palate TM normal on exam Small 1 cm erythema in her mouth - left upper - no fever, no leukocytosis - start doxycycline and reevaluate Subjective Subjective Patient reports: still having pain, tolerating a regular diet, voiding w/o difficulty, bowel movement and afebrile; denies flatus, diarrhea, nausea or vomiting Interval history since last seen: Complains of left ear pain; left jaw pain; left facial pain; left upper palate/dental pain; denies weakness, Exam Narrative Exam Narrative: GEN: NAD, pleasant, cooperative CVS: RRR, no carotid bruit CHEST: No signs of? distress, on room air ABD: Soft, NTTP NEURO:? ? MENTAL STATUS:?AAOx3 ? LANG/SPEECH: Fluent, intact naming, repetition & comprehension ? CRANIAL NERVES: ? II: Pupils equal and reactive, no RAPD,?normal visual field and fundus ? III, IV, : EOM intact, no gaze preference or deviation ? V: normal ? VII: no facial asymmetry ? VIII: normal hearing to speech ? MOTOR: 5/5 in both upper and lower extremities ? REFLEXES: 2/4 throughout,?bilateral flexor plantars ? SENSORY: Normal to touch, temperature & pin prick in all extremiteis ? COORD: Normal finger to nose and heel to sahu, no tremor, no dysmetria Left side of face/jaw/maxilla painful; improved with acetaminophen and ice. Objective Last Vital Signs Temp 37.0 C 05/03/24 15:03 Pulse 75 05/03/24 15:03 Resp 20 05/03/24 15:03 BP 119/74 05/03/24 15:03 Pulse Ox 98 05/03/24 15:03 Laboratory Results - last 24 hr 05/03/24 06:15 WBC 7.25 RBC 4.85 Hgb 13.7 Hct 39.7 MCV 82 MCH 28.2 MCHC 34.5 RDW 11.8 Plt Count 261 MPV 9.6 Immature Gran % 0.4 Neutrophils % 61.5 Lymphocytes % 28.6 Monocytes % 7.7 Eosinophils % 1.4 Basophils % 0.4 Nucleated RBC % 0.0 Absolute Neutrophils 4.46 Absolute Lymphocytes 2.07 Absolute Monocytes 0.56 Absolute Eosinophils 0.10 Absolute Basophils 0.03 Sodium 142 Potassium 3.7 Chloride 103 Carbon Dioxide 29.2 Anion Gap 9.8 BUN 17 Creatinine 0.9 Est GFR (CKD-EPI 2020) 79.35 Glucose 186 H Calcium 8.5 PAWSS Have you Been Recently Intoxicated or Drunk Within the Last 30 days?: No Have you Ever Experienced Previous Episodes of Alcohol Withdrawal?: No Have you ever Experienced Withdrawal Seizures?: No Have you ever Experienced Delirium Tremens(DT)s?: No Have you ever undergone Alcohol Rehabilitation Treatment (i.e, inpt ot outpatient treatment programs)?: No Have you ever Experienced Blackouts?: No Have you ever Combined Alcohol with other Downers within the last 90 days?: No Have you ever Combined Alcohol with any other Substance of Abuse during the last 90 days?: No Positive Blood Alcohol level on Presentation? [PCS.BAL]: No Evidence of Increased Autonomic Activity (i.e. HR>120, tremor, sweating, agitation, nausea)?: No Result: 0 Time Spent with Patient Time Spent with Patient: 25-34 minutes Time was spent: preparing to see the patient(eg.review tests), ordering medications,tests, procedures, referring, communicating with other health career resource technician, indepentently interpreting results, counseling the patient and care coordination
[2024-05-03 19:55] VITALS: BP 134/71; PULSE 89; RESP 19; TEMP 36.8; O2SAT 100
[2024-05-03] MEDS: Rosuvastatin 20 MG TAB PO (20:07)
[2024-05-03] MEDS: Doxycycline Hyclate 100 MG CAP PO (20:07)
[2024-05-03 23:42] VITALS: BP 134/65; PULSE 88; RESP 16; TEMP 36.6; O2SAT 99
[2024-05-04 03:35] VITALS: BP 112/63; PULSE 86; RESP 20; TEMP 36.3; O2SAT 99
[2024-05-04 07:02] LABS: Abs Immature Grans 0.05 10^3/uL (0.0-0.06); Absolute Basophil Count 0.03 10^3/uL (0.0-0.2); Absolute Eosinophil Count 0.11 10^3/uL (0.0-0.7); Absolute Lymphocyte Count 2.34 10^3/uL (1.2-3.4); Absolute Monocyte Count 0.53 10^3/uL (0.1-0.8); Absolute Neutrophil Count 4.28 10^3/uL (1.2-6.7); Basophils % 0.4 %; Eosinophils % 1.5 %; HCT 37.4 % (36.0-46.0); HGB 12.7 g/dL (11.2-15.7); Immature Grans % 0.7 %; Lymphocytes % 31.9 %; MCH 28.1 pg (27.0-33.0); MCV 83 fL (80-95); MPV 9.8 fL (8.0-11.0); Monocytes % 7.2 %; Neutrophils % 58.3 %; Platelet Count 261 10^3/uL (130-400); RBC 4.52 10^6/uL (3.93-5.22); RDW 11.9 % (11.7-14.6); RDW-SD 35.7 fL; WBC 7.34 10^3/uL (4.4-10.8)
[2024-05-04 07:26] VITALS: BP 121/59; PULSE 78; RESP 16; TEMP 36.6; O2SAT 99
[2024-05-04 07:34] LABS: Anion Gap 4.4 mmol/L (3-11); BUN 17 mg/dL (7-18); CO2 31.6 mmol/L (21.0-32.0); CREATININE 0.8 mg/dL (0.55-1.02); Calcium 8.7 mg/dL (8.5-10.1); Chloride 105 mmol/L (98-107); Glucose 190 mg/dL (74-106); Magnesium 1.5 mg/dL (1.8-2.4); Potassium 3.6 mmol/L (3.5-5.1); Sodium 141 mmol/L (136-145)
[2024-05-04] MEDS: Enoxaparin 40 MG/0.4 ML SYR SC (07:45)
[2024-05-04] MEDS: Insulin Aspart 300 UNITS/3 ML PEN SC ×2 (07:45→11:30)
[2024-05-04] MEDS: Insulin Glargine 300 UNITS/3 ML PEN 30 UNITS SC (07:46)
[2024-05-04] MEDS: Doxycycline Hyclate 100 MG CAP PO (07:47)
[2024-05-04] MEDS: Aspirin 81 MG CHEW PO (07:47)
[2024-05-04] MEDS: Lisinopril 5 MG TAB 2.5 MG PO (07:47)
[2024-05-04] MEDS: Pantoprazole 40 MG TABCR PO (07:47)
[2024-05-04] MEDS: Normal Saline Flush 10 ML SYR IVP (07:48)
[2024-05-04] MEDS: Docusate Sodium 100 MG CAP PO (07:48)
[2024-05-04] MEDS: Folic Acid 1 MG TAB PO (07:48)
[2024-05-04] MEDS: MAGNESIUM SULFATE 2 GM/50 ML BAG IV_INF (08:46)
--- NOTE | 2024-05-04 09:09 | PT.INTREAT ---
PT Notes Visit Reasons: Cerebrovascular accident Date: 05/04/24 SUBJECTIVE: Pt in recliner when approached for therapy this morning, pt reports she is having pain on the left side of her face starting from the scalp up to the jaw line 5/10, dorsal lateral part of left foot 5/10. Nurse Sabra in pt room and is setting pt for an IV infusion of magnesium per MD order stat, pt agreed to participating with therapy after IV setup gets done. OBJECTIVE: IV infusion on left? antecubital.? VITALS: ?monitored by nsg. via telemetry Therapeutic Activities 29313 25mins: Direct one-on-one instruction in dynamic activities to improve functional performance. ? BED MOBILITY/TRANSFERS? seated in recliner? Sit-stand: I ? Stand-sit: I? GAIT? Assistive Device: none ? Weight bearing: full Assist:SBA? Distance:?approx 400'? Deviation: slow.? STAIRS:ascend/descend clinic steps. 10, 6 steps and 15, 4 steps with one rail and SBA. ?IV line management ? ASSESSMENT:?pt tolerated activity well, did not complain of increased pain during activity, took a seated rest break after gait distance prior to going for stair negotiation training to avoid SOB. PLAN: will continue to progress her strength and functional mobility following PT POC. TREATMENT CODE/TIME: 25 min. [id number] (8:40-9:05am), DISCHARGE RECOMMENDATION: home with out pt PT.
[2024-05-04] MEDS: Polyethylene Glycol 3350 17 GM PACKET PO (09:23)
[2024-05-04] MEDS: Bisacodyl 10 MG SUPP PR (09:26)
--- NOTE | 2024-05-04 10:58 | DSE_ITS ---
Date of service: 05/04/24 Time of Service: 10:58 DS: Diagnosis Discharge Diagnosis (1) CVA (cerebrovascular accident): Status: Ruled-out (2) Hypertension: Status: Chronic (3) Type 2 diabetes mellitus: (4) Headache: Status: Resolved (5) Pain, dental: Status: Acute Discharge Plan Disposition Patient Disposition: Home Condition: Improving Discharge Details Reason For Visit: CVA Admit Date/Time: 04/30/24 20:40 Admit Provider: Elmer Crockett Attending Provider: Elmer Crockett Primary Care Provider: Roger Ellis Hospital Course Hospital Course: A 48-year-old female with a history of Type 2 Diabetes Mellitus and gestational hypertension presented with a complaint of falls, headaches, and left-sided face and arm numbness. She reported that her symptoms began more subtly about a year ago after she tripped over her cat and fell, experiencing left-sided weakness. Over the past 1-2 months, while dealing with emotional stress related to her granddaughter, she noted an increase in her blood pressure. She described an episode during this time when she felt as though someone pushed her from behind, leading to another fall, where she bumped her left forehead. For the past five days, she has experienced retroorbital throbbing headaches on the left side, which come and go, associated with nausea, rhinorrhea, and tearing. There was no fever or signs of illness otherwise. In the last two days, she developed numbness in her left face, arm, and hand, prompting her to seek medical attention. She denied a history of chronic headaches and mentioned that she is sexually active but not using contraception. She has experienced two early miscarriages in the last two years, in addition to a total of four spontaneous abortions, but has never had a term despite not using contraception for several years. There was no fever or leukocytosis. She complained of left upper dental pain and mentioned a ?blood blister? that popped, now causing pain in the left side of her face, ear, and palate. A small 1 cm area of erythema was noted in her left upper mouth. Her tympanic membrane exam was normal. There were no acute findings on her neurological examination, though her reported symptoms suggested possible neurological involvement. Given her history and presentation, we considered the possibility of a transient ischemic attack, with additional concerns for a local oral infection or viral condition, such as herpes zoster, (doubt, no lesions), doubt trigeminal neuralgia, (not sudden or intense pain, not sharp or electric shock like), due to the facial and oral discomfort. We initiated a treatment plan to manage her pain and potential infection, including starting doxycycline for the oral erythema, and advised further diagnostic workup, including brain imaging and vascular studies. Brain CT - no acute intracranial findings. Old lacunar infarct incidentally noted in the right thalamus. Brain MRI - no evidence of acute infarct. Old lacunar infarct right thalamus. Echo- EF 55%, no segemental wall motion abnormalities. Bilateral carotid ultrasound - no evidence for hemodynamically significant carotid sternosis. Given her history and presentation, possible causes for her neurological symptoms included a transient ischemic attack. Additionally, her facial and oral symptoms were concerning for a local infection or viral condition, such as herpes zoster, doubt without lesions. The patient was started on Lisinopril 2.5 mg daily for hypertension. Her blood pressure decreased to normal parameters, and she was advised to continue this medication as prescribed, with further instructions to be provided by her primary care provider. Patient's glucose was elevated in the 200s. She was started on sliding scale insulin and given 30 units of glargine in the morning. Patient instructed to continue Ozempic and follow up with PCP for further treatment of diabetes. She was also started on doxycycline 100 mg twice daily for a possible dental infection and was instructed to continue this regimen for five days. She was advised to follow up with her dentist for further evaluation and care. The patient reported feeling better the following morning, noting significant improvement in the left-sided facial and ear pain. The patient was advised to follow up with neurology for further evaluation of her neurological symptoms. She was instructed to avoid strenuous activities and to monitor for any worsening symptoms such as increasing headache, vision changes, or weakness, and to seek immediate medical care if these occurred. Additionally, she was counseled on the importance of managing her blood pressure and blood sugar levels, as well as monitoring her overall cardiovascular health. Home Meds and New Rx's Prescriptions: New doxycycline hyclate 100 mg capsule 100 mg PO BID 5 Days Qty: 10 0RF lisinopril 2.5 mg tablet 2.5 mg PO DAILY Qty: 30 0RF Continued Ozempic 1 mg/dose (4 mg/3 mL) pen injector 1 mg subcut QWEEK Rx Instructions: Takes every week on Friday pantoprazole 40 mg tablet,delayed release (DR/EC) 40 mg PO DAILY folic acid 1 mg tablet 1 mg PO DAILY Discharge Instructions Instructions: Mouth Sores (DC), Dental Pain (DC) Additional Instructions: Follow up with PCP regarding blood pressure and diabetes, also follow up with your dentist. Take doxycycline 100 mg orally twice a day for 5 days. Start Lisinopril 2.5 mg orally daily. Stand Alone Forms: Nursing Discharge Form Referrals: Roger Ellis [Primary Care Provider] - 05/05/24 11:20 am (please provide patient with a referral to neurology for remote lacunar infarct ) Activity:: Activity as Tolerated Equipment/Supplies:: No Equipment Needed Diet:: Diabetic Discharge Orders Discharge Orders: Discharge Order (Routine); Ordered 05/04/24 Ordered By: Caroline Mckinney Discharge Data Discharge Date/Time-TO BE ENTERED AT DEPARTURE: 05/04/24 12:27 DS: Summary Time Spent with Patient providing and/or coordinating discharge services: Greater than 30 minutes Status at Discharge Functional status at discharge: independent ambulation Overall status at discharge: patient is back to baseline Mental Status: mental status grossly normal Speech and Movement: speech and movement normal Mood: congruent mood Affect: normal affect Quality:SDOH Health Related Social Needs: Health related social needs problems related to housin g/economic circumstances (Z59.89), feeling lonely/isolated (Z60.8) Exam Narrative Exam Narrative: GEN: NAD, pleasant, cooperative CVS: RRR, no carotid bruit CHEST: No signs of? distress, on room air ABD: Soft, NTTP NEURO:? ? MENTAL STATUS:?AAOx3 ? LANG/SPEECH: Fluent, intact naming, repetition & comprehension ? CRANIAL NERVES: ? II: Pupils equal and reactive, no RAPD,?normal visual field and fundus ? III, IV, : EOM intact, no gaze preference or deviation ? V: normal ? VII: no facial asymmetry; some pain to left upper lateral face ? VIII: normal hearing to speech ? MOTOR: 5/5 in both upper and lower extremities ? REFLEXES: 2/4 throughout,?bilateral flexor plantars ? SENSORY: Normal to touch, temperature iin all extremiteis ? COORD: Normal finger to nose and heel to sahu, no tremor, no dysmetria Psych Mental Status: mental status grossly normal Speech and Movement: speech and movement normal Mood: congruent mood Affect: normal affect DS: Data Vitals/I&O Vitals and I&O: Vital Signs Temperature 36.6 C 05/04/24 07:26 Temperature Source Temporal Artery Scan 05/04/24 07:26 Pulse 78 05/04/24 07:26 Pulse Rhythm Regular 04/30/24 22:38 Pulse 91 H 04/30/24 22:20 Respiratory Rate 16 05/04/24 07:26 Respiratory Effort Normal 04/30/24 22:38 Respiratory Depth Normal 04/30/24 18:31 Blood Pressure 121/59 L 05/04/24 07:26 Blood Pressure Mean 159 04/30/24 22:16 Pulse Oximetry 99 05/04/24 07:26 Oxygen Delivery Method Room Air 05/04/24 07:26 Oxygen Flow Rate 0 05/04/24 07:26 Pain Level 6 05/03/24 23:46 Comment RN Notified 05/03/24 04:31 Intake & Output 05/03/24 05/03/24 05/04/24 11:59 23:59 11:59 Intake Total 810 / 810 420 / 420 Output Total 850 / 1400 550 / 1400 600 / 600 Balance -850 / -590 260 / -590 -180 / -180 Intake: IV Oral 800 / 800 420 / 420 Output: Urine 850 / 1400 550 / 1400 600 / 600 Other: Urine Color Yellow Straw Yellow Urine Appearance Clear Clear Clear Urine Odor Normal Normal Stool Size Moderate Stool Characteristics Formed Hard Mucoid Brown Data Completed and Pending Labs on day of discharge: Labs from last 24 hours 05/04/24 06:26 WBC 7.34 RBC 4.52 Hgb 12.7 Hct 37.4 MCV 83 MCH 28.1 MCHC 34.0 RDW 11.9 Plt Count 261 MPV 9.8 Immature Gran % 0.7 Neutrophils % 58.3 Lymphocytes % 31.9 Monocytes % 7.2 Eosinophils % 1.5 Basophils % 0.4 Nucleated RBC % 0.0 Absolute Neutrophils 4.28 Absolute Lymphocytes 2.34 Absolute Monocytes 0.53 Absolute Eosinophils 0.11 Absolute Basophils 0.03 Sodium 141 Potassium 3.6 Chloride 105 Carbon Dioxide 31.6 Anion Gap 4.4 BUN 17 Creatinine 0.8 Est GFR (CKD-EPI 2020) 91.40 Glucose 190 H Calcium 8.7 Magnesium 1.5 L PFSH All Active Problems (Updated 05/04/24 @ 11:50 by Caroline Mckinney NP) Pain, dental (Acute) General counseling and advice on contraceptive management (Acute) DVT prophylaxis (Acute) Hypertension (Chronic) Medical History Type 2 diabetes mellitus Surgical History S/P removal of ovarian cyst Family History Mother Diabetes Heart disease Sister Diabetes Social History Smoking/Tobacco Use Status: Former Tobacco Use Smoking risk assessment performed?: Yes Alcohol Intake: current Alcohol Intake frequency: 0-2 drinks per day Substance use type: former substance user Housing: apartment Do you feel safe at home: Yes Do you feel safe in your relationship?: Yes Additional Social history: Lives with and 3 grandkids in [place] Time Spent with Patient Time Spent with Patient: 45-69 minutes Time was spent: preparing to see the patient(eg.review tests), ordering medications,tests, procedures, referring, communicating with other health after school caregiver, indepentently interpreting results, counseling the patient and care coordination
--- NOTE | 2024-05-04 11:01 | CMDISCH_ITS ---
Date of service: 05/04/24 Time of Service: 11:01 LACE Index Scoring Tool Questions: Length of Stay (in days): 4 - 6 Was the patient admitted via the E.D.?: Yes E.D. Visits: 0 Answers: Total Score: 7 Risk of Readmission: Low Risk Care Management Discharge Plan Reason for Hospitalization: CVA Discharge Plan: Rochelle returned home today with no new services. Her will drive her home via private vehicle when ready. She will follow up with her PCP and discharge plan of care. Patient/Family Education Needs: Review discharge instructions and limitations, discussion of self care needs including ask me three. SDOH Health Related Social Needs: Health related social needs problems related to housin g/economic circumstances (Z59.89), feeling lonely/isolated (Z60.8)
[2024-05-04 11:12] VITALS: BP 139/81; PULSE 80; RESP 18; TEMP 36.2; O2SAT 99
== END 2024-05-04 12:27 | disposition home or self-care (01) | DRG 103 ==
LOC: ER 21:40 → MS 22:03
PROVIDERS: Hospitalist; Nurse Practitioner Acute Care; Nurse Practitioner Family; Admitting Provider Family Medicine; Emergency Provider Emergency Medicine; PCP Nurse Practitioner Family; Visit Provider Family Medicine
DX: G43.809 Other migraine, not intractable, without status migrainosus (principal); K08.89 Other specified disorders of teeth and supporting structures; R20.2 Paresthesia of skin; S00.83XA Contusion of other part of head, initial encounter; I10 Essential (primary) hypertension; E11.65 Type 2 diabetes mellitus with hyperglycemia; R29.6 Repeated falls; W18.39XA Other fall on same level, initial encounter; Z79.85 Long-term (current) use of injectable non-insulin antidiabetic drugs; Z86.73 Personal history of transient ischemic attack (TIA), and cerebral infarction without residual deficits
CPT/HCPCS: 00123; 36415; 36416; 80048; 80053; 80061; 82962; 85652; 87637; 92610; 93005; 96374; 96375; 97162; 97530; 99285; J1650; 70450; 70551; 83036; 83735; 84443; 84484; 85025; 85610; 85730; 92523; 93010; 93306; 93880; 99223; 99232; 99233; 99239; J1815; J1885; J2765; J3475

== ENCOUNTER 2024-11-25 11:13 | Emergency (ER) | payer MEDICAID, SELFPAY ==
--- NOTE | 2024-11-25 11:15 | RT.EKG_ITS ---
APPROVED REPORT Exam: Resting ECG Reason for Exam: epigastric pain Patient Location: E HR:85 bpm ECG Measurements Heart Rate 85 AXIS WA 143 P 66 QRSd 91 QRS 91 QT 360 T 39 QTc 429 Conclusion Sinus rhythm...normal P axis, V-rate 60- 99 Low voltage, precordial leads...precordial leads <1.0mV No Occlusion NM
[2024-11-25 11:23] VITALS: BP 163/86; PULSE 88; RESP 16; TEMP 36.7; O2SAT 95
--- NOTE | 2024-11-25 11:45 | DI.CT_ITS ---
Exam(s) CT ABDOMEN PELVIS W EXAM: CT ABDOMEN PELVIS W CLINICAL HISTORY: LUQ/epigastric tenderness, SBO, hernia, myranda? TECHNIQUE: Imaging Protocol: Axial computed tomography images with coronal and sagittal reformatted images were created and reviewed. CONTRAST MATERIAL: Intravenous: Omnipaque 350 Contrast volume:100 mL Oral: No COMPARISON: CT CT ABDOMEN PELVIS W from 03/26/2023 FINDINGS: ABDOMEN: Lung Bases: No acute abnormality. Liver: Normal density. No measurable mass. Portal, Superior Mesenteric, and Splenic Veins: Unremarkable. Gallbladder and Biliary Tract: There are few tiny densities in the dependent portion of the gallbladder which may represent small stones. There is no biliary ductal dilatation. Pancreas: Normal density, no abnormal calcifications or inflammatory process. Spleen: Normal. Adrenals: No masses seen. Kidneys: Normal size, contour and axis. No radiodense stones or obstructive uropathy. There is a simple cyst at the inferior pole of the right kidney. No follow-up is recommended. Abdominal Aorta: Abdominal portion non-dilated. Atherosclerotic calcification is present. Bowel: No obstruction or bowel wall thickening. Appendix is unremarkable. Peritoneal Cavity: No ascites, collection or mesenteric inflammatory response. No free air. Lymph Nodes: Within normal limits. Bones: Within normal limits for the patient's age. Soft Tissues: Unremarkable. PELVIS: Bladder: The urinary bladder is incompletely distended but grossly unremarkable. Reproductive Organs: Unremarkable as visualized. Lymph Nodes: Within normal limits. Bones: Within normal limits for the patient's age. IMPRESSION: 1. No acute abdominal or pelvic process. 2. There is no evidence of a bowel obstruction. 3. Possible small gallstones but no CT findings to suggest acute cholecystitis or biliary ductal dilatation. 4. No evidence of nephrolithiasis or obstructive uropathy. RADIATION DOSE DELIVERED: 1,076.5mGy.cm Total DLP DATA REPOSITORY: All CT scans at this facility are submitted to the National Radiology Data Registry (NRDR) Dose Index Registry (DIR) with the [employer] ([employer]). RADIATION OPTIMIZATION: All CT scans at this facility use at least one of these dose optimization techniques: automated exposure control; mA and/or kV adjustment per patient size (includes targeted exams where dose is matched to clinical indication); or iterative reconstruction.
--- NOTE | 2024-11-25 11:45 | W.ED.GENAD ---
Discharge Plan Disposition Patient Disposition: Home Condition: Stable Discharge Details Clinical Impression: Pancreatitis Primary Care Provider: Roger Ellis ED Provider: Steven Garcai Home Meds and New Rx's Prescriptions: Continued Ozempic 1 mg/dose (4 mg/3 mL) pen injector 1 mg subcut QWEEK Rx Instructions: Takes every week on Friday pantoprazole 40 mg tablet,delayed release (DR/EC) 40 mg PO DAILY folic acid 1 mg tablet 1 mg PO DAILY lisinopril 2.5 mg tablet 2.5 mg PO DAILY Qty: 30 0RF Trulicity 0.75 mg/0.5 mL pen injector 0.75 mg subcut QWEEK rosuvastatin [Crestor] 20 mg tablet 20 mg PO DAILY Discharge Instructions Instructions: Acute pancreatitis, Hydrocodone and Acetaminophen, Ondansetron Additional Instructions: You were seen in the emergency department for your centralized abdominal pain, your labs showed acute pancreatitis, your ultrasound shows some gallbladder sludge but no evidence for any obstruction. Please minimize the food intake and use a clear fluid diet for the next 24 to 48 hours to give your pancreas time to rest, please return for any intractable nausea or vomiting, acute worsening especially fever or failure to improve. Referrals: Roger Ellis [Primary Care Provider, Medicine] Discharge Data Discharge Date/Time-TO BE ENTERED AT DEPARTURE: 11/25/24 15:30 HPI General Date/Time Provider Initiated Documentation: 11/25/24 11:20. HPI Narrative: 49 year-old female presents to ED today by POV/ambulating with a chief complaint of abdominal pain, possible hernia, and indigestion with onset 3 days ago, getting worse. Quality described as generalized epigastric pain, no radiation to vomiting, fever, chest pain, shortness of breath, black/bloody stools, nausea/vomiting. Severity is described as moderate to severe. Palliating factors include nothing specific attempted. Provoking factors include nothing specific. Events leading up to the incident/Associated Symptoms: Patient has history of ovarian cyst removal. Patient not anticoagulated. Related Data Home Medications ?Medication ?Instructions ?Recorded ?Confirmed folic acid 1 mg tablet 1 mg PO DAILY 04/16/23 11/25/24 pantoprazole 40 mg tablet,delayed 40 mg PO DAILY 04/16/23 11/25/24 release semaglutide 1 mg/dose (4 mg/3 mL) 1 mg subcut QWEEK 04/30/24 11/25/24 subcutaneous pen injector (Ozempic) lisinopril 2.5 mg tablet 2.5 mg PO DAILY #30 tabs 05/04/24 11/25/24 dulaglutide 0.75 mg/0.5 mL 0.75 mg subcut QWEEK 11/25/24 11/25/24 subcutaneous pen injector (Trulicity) rosuvastatin 20 mg tablet (Crestor) 20 mg PO DAILY 11/25/24 11/25/24 Previous Rx's ?Medication ?Instructions ?Recorded lisinopril 2.5 mg tablet 2.5 mg PO DAILY #30 tabs 05/04/24 Allergies Allergy/AdvReac Type Severity Reaction Status Date / Time latex Allergy Intermediate Hives Verified 11/25/24 14:10 oxycodone (From Percocet) Allergy Intermediate Itching Verified 11/25/24 14:10 simvastatin Allergy Intermediate Itching Verified 11/25/24 14:10 sulfamethoxazole (From Allergy Intermediate Itching Verified 11/25/24 14:10 Bactrim) trimethoprim (From Bactrim) Allergy Intermediate Itching Verified 11/25/24 14:10 semaglutide (From Ozempic) Allergy Mild Nausea Verified 11/25/24 14:10 empagliflozin (From AdvReac Intermediate Other (See Verified 11/25/24 14:10 Jardiance) Comment) General Stated Complaint: Abd Prob JERICA: 3 Review of Systems All systems reviewed & are unremarkable except as noted in HPI and below Exam Narrative Exam Narrative: GENERAL APPEARANCE: Well-nourished, non-toxic, awake and alert, atraumatic, no acute distress. SKIN: Warm, pink, dry, intact, without rashes/lesions/ulcerations. HEAD: Normocephalic, atraumatic, normal hair distribution for gender/age. EYES: Normal conjunctiva, no exudates on lids/lashes. ENT: Nares patent, no circumoral cyanosis, no facial swelling NECK: Supple, trachea midline, painless cervical ROM. LUNGS/CHEST: Lungs CTA bilaterally- no rhonchi/rales/wheezes diffusely, non-labored respirations, normal A/P diameter, symmetrical expansion, no chest wall deformity HEART (CV/PV): Regular rate and rhythm without murmur, no peripheral edema, no JVD. ABDOMEN: Soft, non-distended, no guarding, epigastric tenderness without Lopez's sign, no CVA tenderness to percussion bilaterally, negative Rovsing's. MSK: Normal ROM, no swelling/deformity to bilateral UEs or LEs, moving all extremities without weakness, no cyanosis, spine midline without tenderness, normal curvature. NEURO: Mental Status AAOx4 - alert to person, place, time, events No facial droop, no forehead involvement. Motor: No focal weakness - strength 5/5 in bilateral UEs and LEs, proximal and distal, symmetric. Sensory: sensation intact to light touch globally. Gait normal: patient ambulated without ataxia into ED room. PSYCH: euthymic, cooperative, pleasant, appropriate speech Course Vital Signs Vital signs: Vital Signs Temperature 36.7 C 11/25/24 11:23 Pulse 88 11/25/24 11:23 Respiratory Rate 16 11/25/24 11:23 Blood Pressure 163/86 H 11/25/24 11:23 Pulse Oximetry 95 11/25/24 11:23 Temperature 36.7 C 11/25/24 11:23 Temperature Source Oral 11/25/24 11:23 Pulse 88 11/25/24 11:23 Respiratory Rate 16 11/25/24 11:23 Blood Pressure 163/86 H 11/25/24 11:23 Blood Pressure Position Sitting 11/25/24 11:23 Pulse Oximetry 95 11/25/24 11:23 Oxygen Delivery Method Room Air 11/25/24 11:23 Oxygen Flow Rate 0 11/25/24 11:23 Pain Level 9 11/25/24 11:23 Medical Decision Making This dictation utilizes [id number] dictation software and may contain unedited grammatical errors. 49 year-old female presents to ED today by POV/ambulating with a chief complaint of abdominal pain, possible hernia, and indigestion with onset 3 days ago, getting worse. Quality described as generalized epigastric pain, no radiation to vomiting, fever, chest pain, shortness of breath, black/bloody stools, nausea/vomiting. Severity is described as moderate to severe. Palliating factors include nothing specific attempted. Provoking factors include nothing specific. Events leading up to the incident/Associated Symptoms: Patient has history of ovarian cyst removal. Patients' medical history: Hypertension, T2DM, gastritis. Family and social history: Noncontributory. Pertinent exam findings / vital signs include epigastric abdominal tenderness without Lopez sign, no McBurney's point tenderness or Rovsing's, no CVA tenderness to percussion bilaterally, benign cardiopulmonary exam, nontoxic and afebrile, neuro intact. Differential / pathologies of concern include gastritis, biliary colic, renal colic, SBO, gastroenteritis. Diagnostic studies of: -CBC, CMP, lactate, magnesium, troponin, lipase, UA, US RUQ, CT ABD/pelvis with contrast, EKG. - CBC shows no leukocytosis, no anemia, no actionable abnormality - Lactate negative - CMP without actionable abnormality save for elevated glucose in the setting of chronic T2DM - Magnesium 1.8 - Troponin negative with reliable onset - UA is benign - Lipase is elevated at 191 indicating a mild pancreatitis - CT shows no cholecystitis or biliary ductal dilatation - US RUQ shows gallbladder sludge without any other acute pathology - EKG shows sinus rhythm at 85 bpm with P waves followed by a narrow complex QRS with normal axis, poor R wave progression with low voltage, no ischemia Interventions of: -50 mg IVP ketorolac, 4 mg IVP Zofran, 1 g IV APAP, 1 L IVF NS, to go packs of Zofran and hydrocodone. ED Course/Assessment/Plan: 49-year-old female with severe alcohol use presents with an acute pancreatitis of a mild nature, and centralized abdominal pain, imaging is all negative for any gallstones cause of pancreatitis she does have some sludge but her lipase is not significantly elevated with no evidence for elevated LFTs to suspect choledocholithiasis/cholangitis, counseled the patient on clear fluid diet and pain control with PCP follow-up, strict return criteria for any worsening again contacted discussed that in time she may need workup for autoimmune pancreatitis and possible outpatient MRCP, patient was tolerating p.o. intake of water here in the emergency department discharged and has nontoxic, nonseptic vitals. Findings not consistent with sepsis, biliary colic/obstructive pathology, kidney stones, acute abdominal surgical pathology. Disposition of Pancreatitis. Patient verbalized understanding of the plan and return to ED criteria and engaged in shared decision making. Medical Records Medical records reviewed: Yes I reviewed the patient's medical records. Imaging Data Radiologic Study: Attestation: I personally reviewed and interpreted this imaging study as follows: Imaging: CT Scan Radiologist's impression: EXAM: CT ABDOMEN PELVIS W CLINICAL HISTORY: LUQ/epigastric tenderness, SBO, hernia, myranda? TECHNIQUE: Imaging Protocol: Axial computed tomography images with coronal and sagittal reformatted images were created and reviewed. CONTRAST MATERIAL: Intravenous: Omnipaque 350 Contrast volume:100 mL Oral: No COMPARISON: CT CT ABDOMEN PELVIS W from 03/26/2023 FINDINGS: ABDOMEN: Lung Bases: No acute abnormality. Liver: Normal density. No measurable mass. Portal, Superior Mesenteric, and Splenic Veins: Unremarkable. Gallbladder and Biliary Tract: There are few tiny densities in the dependent portion of the gallbladder which may represent small stones. There is no biliary ductal dilatation. Pancreas: Normal density, no abnormal calcifications or inflammatory process. Spleen: Normal. Adrenals: No masses seen. Kidneys: Normal size, contour and axis. No radiodense stones or obstructive uropathy. There is a simple cyst at the inferior pole of the right kidney. No follow-up is recommended. Abdominal Aorta: Abdominal portion non-dilated. Atherosclerotic calcification is present. Bowel: No obstruction or bowel wall thickening. Appendix is unremarkable. Peritoneal Cavity: No ascites, collection or mesenteric inflammatory response. No free air. Lymph Nodes: Within normal limits. Bones: Within normal limits for the patient's age. Soft Tissues: Unremarkable. PELVIS: Bladder: The urinary bladder is incompletely distended but grossly unremarkable. Reproductive Organs: Unremarkable as visualized. Lymph Nodes: Within normal limits. Bones: Within normal limits for the patient's age. IMPRESSION: 1. No acute abdominal or pelvic process. 2. There is no evidence of a bowel obstruction. 3. Possible small gallstones but no CT findings to suggest acute cholecystitis or biliary ductal dilatation. 4. No evidence of nephrolithiasis or obstructive uropathy. Radiologic Study #2: Attestation: I personally reviewed and interpreted this imaging study as follows: Imaging: Ultrasound Radiologist's impression: EXAM: US ABDOMEN LIMITED CLINICAL HISTORY: RUQ - ?myranda fluid? ?dilated CBD? TECHNIQUE: Ultrasound abdomen performed using standard protocol. COMPARISON: CT CT ABDOMEN PELVIS W from 11/25/2024 FINDINGS: PANCREAS: Normal where visualized. LIVER: There is increased echogenicity of the liver suggesting fatty infiltration. Hepatopetal flow in the Portal Vein. The liver measures in 20.2 cm length. No evidence of a hepatic mass. GALLBLADDER: No evidence of cholelithiasis. No evidence of wall thickening. No pericholecystic fluid identified. There is a small amount of gallbladder sludge present. BILIARY SYSTEM: Common bile duct measures < 7 mm. No intrahepatic biliary ductal dilation. LOPEZ'S SIGN: Negative. RIGHT KIDNEY: Kidney is normal in size. No evidence of renal calculi. No evidence of hydronephrosis. No renal mass or cyst identified. ASCITES: None seen. IMPRESSION: 1. Hepatomegaly and hepatic steatosis. 2. Gallbladder sludge. No biliary ductal dilatation or cholelithiasis. Lab Data Lab results reviewed: Yes I reviewed the patient's lab results. Labs: Laboratory Tests Range/Units 11/25/24 11/25/24 12:04 12:06 WBC (4.4-10.8) 10^3/uL 8.36 RBC (3.93-5.22) 10^6/uL 5.10 Hgb (11.2-15.7) g/dL 13.9 Hct (36.0-46.0) % 41.8 MCV (80-95) fL 82 MCH (27.0-33.0) pg 27.3 MCHC (32.0-36.0) % 33.3 RDW (11.7-14.6) % 12.9 Plt Count (130-400) 10^3/uL 286 MPV (8.0-11.0) fL 9.3 Immature Gran % % 0.8 Neutrophils % % 63.1 Lymphocytes % % 28.9 Monocytes % % 6.0 Eosinophils % % 0.8 Basophils % % 0.4 Nucleated RBC % (0.0-0.3) % 0.0 Absolute Neutrophils (1.2-6.7) 10^3/uL 5.27 Absolute Lymphocytes (1.2-3.4) 10^3/uL 2.42 Absolute Monocytes (0.1-0.8) 10^3/uL 0.50 Absolute Eosinophils (0.0-0.7) 10^3/uL 0.07 Absolute Basophils (0.0-0.2) 10^3/uL 0.03 VBG Lactate (<or=2.0) mmol/L 0.9 Sodium (136-145) mmol/L 136 Potassium (3.5-5.1) mmol/L 4.5 Chloride (98-107) mmol/L 100 Carbon Dioxide (21.0-32.0) mmol/L 28.1 Anion Gap (3-11) mmol/L 7.9 BUN (7-18) mg/dL 16 Creatinine (0.55-1.02) mg/dL 1.0 Est GFR (CKD-EPI 2020) (mL/min/1.73m2) 69.49 Glucose (74-106) mg/dL 280 H Calcium (8.5-10.1) mg/dL 8.7 Magnesium (1.8-2.4) mg/dL 1.8 Total Bilirubin (0.2-1.0) mg/dL 0.4 AST (15-37) U/L 10 L ALT (14-59) U/L 22 Alkaline Phosphatase (46-116) U/L 82 Troponin I (<or=51) ng/L 4 Total Protein (6.4-8.2) g/dL 7.5 Albumin (3.4-5.0) g/dL 3.3 L Lipase (<78) U/L 191 H Urine Color (Yellow) Yellow Urine Clarity (Clear) Sl Cloudy Urine pH (5-8) 5.5 Ur Specific [place] (1.005-1.025) >= 1.030 H Urine Protein (Neg-Trace) mg/dL >=300 H Urine Ketones (Negative) mg/dL Negative Urine Blood (Negative) Small H Urine Nitrite (Negative) Negative Urine Bilirubin (Negative) Small H Urine Urobilinogen (Up to 0.2) mg/dL 0.2 Ur Leukocyte Esterase (Negative) Negative Urine RBC (0-2) HPF 0-2 Urine WBC (0-5) HPF 3-5 Ur Epithelial Cells (Negative) HPF Moderate Urine Crystals (Negative) HPF Negative Urine Bacteria (Negative) HPF Few Urine Casts (Negative) LPF Negative Urine Mucus (Negative) Trace Ur Culture Indicated? No Urine Glucose (Negative) mg/dL 250 H Quality:SDOH Health Related Social Needs: Health related social needs house/econ circumstance lonely/isolated PFSH All Active Problems (Updated 11/25/24 @ 14:45 by BINDU Garcia) Pancreatitis (Chronic) Pain, dental (Acute) General counseling and advice on contraceptive management (Acute) Medical History Type 2 diabetes mellitus Surgical History S/P removal of ovarian cyst Family History Mother Diabetes Heart disease Sister Diabetes Social History Smoking/Tobacco Use Status: Former Tobacco Use Smoking risk assessment performed?: Yes Alcohol Intake: current Alcohol Intake frequency: 0-2 drinks per day Substance use type: marijuana Housing: apartment Do you feel safe at home: Yes Do you feel safe in your relationship?: Yes Additional Social history: Lives with and 3 grandkids in [place]
[2024-11-25 12:10] LABS: Abs Immature Grans 0.07 10^3/uL (0.0-0.06); HCT 41.8 % (36.0-46.0); HGB 13.9 g/dL (11.2-15.7); Immature Grans % 0.8 %; MCH 27.3 pg (27.0-33.0); MCHC 33.3 % (32.0-36.0); MCV 82 fL (80-95); MPV 9.3 fL (8.0-11.0); Platelet Count 286 10^3/uL (130-400); RBC 5.10 10^6/uL (3.93-5.22); RDW 12.9 % (11.7-14.6); RDW-SD 38.2 fL; WBC 8.36 10^3/uL (4.4-10.8)
[2024-11-25] MEDS: Normal Saline - Diluent 50 ML VIAL IJ (12:17)
[2024-11-25] MEDS: Omnipaque 350 MG/ML 100 ML BTL IJ (12:18)
[2024-11-25 12:19] LABS: Glucose 250 mg/dL (Negative)
[2024-11-25 12:33] LABS: C & S Indicated? No; RBC 0-2 HPF (0-2)
[2024-11-25] MEDS: Normal Saline 1,000 ML 1000 ML IV (12:38)
[2024-11-25 12:39] LABS: ALT 22 U/L (14-59); AST 10 U/L (15-37); Albumin 3.3 g/dL (3.4-5.0); Alkaline Phosphatase 82 U/L (46-116); Anion Gap 7.9 mmol/L (3-11); BUN 16 mg/dL (7-18); Bilirubin, Total 0.4 mg/dL (0.2-1.0); CO2 28.1 mmol/L (21.0-32.0); Calcium 8.7 mg/dL (8.5-10.1); Chloride 100 mmol/L (98-107); Estimated GFR 69.49 (mL/min/1.73m2); Glucose 280 mg/dL (74-106); Lipase 191 U/L (<78); Magnesium 1.8 mg/dL (1.8-2.4); Potassium 4.5 mmol/L (3.5-5.1); Sodium 136 mmol/L (136-145); Total Protein 7.5 g/dL (6.4-8.2); Troponin I 4 ng/L (<or=51)
[2024-11-25] MEDS: Ketorolac 15 MG/ML VIAL IVP (12:39)
[2024-11-25] MEDS: ACETAMINOPHEN 1,000 MG/100 ML BAG 400 MG IVPB (12:39)
[2024-11-25] MEDS: Ondansetron 4 MG/2 ML VIAL IVP (12:39)
--- NOTE | 2024-11-25 13:15 | DI.US_ITS ---
Exam(s) US ABDOMEN LIMITED EXAM: US ABDOMEN LIMITED CLINICAL HISTORY: RUQ - ?myranda fluid? ?dilated CBD? TECHNIQUE: Ultrasound abdomen performed using standard protocol. COMPARISON: CT CT ABDOMEN PELVIS W from 11/25/2024 FINDINGS: PANCREAS: Normal where visualized. LIVER: There is increased echogenicity of the liver suggesting fatty infiltration. Hepatopetal flow in the Portal Vein. The liver measures in 20.2 cm length. No evidence of a hepatic mass. GALLBLADDER: No evidence of cholelithiasis. No evidence of wall thickening. No pericholecystic fluid identified. There is a small amount of gallbladder sludge present. BILIARY SYSTEM: Common bile duct measures < 7 mm. No intrahepatic biliary ductal dilation. LUDWIG'S SIGN: Negative. RIGHT KIDNEY: Kidney is normal in size. No evidence of renal calculi. No evidence of hydronephrosis. No renal mass or cyst identified. ASCITES: None seen. IMPRESSION: 1. Hepatomegaly and hepatic steatosis. 2. Gallbladder sludge. No biliary ductal dilatation or cholelithiasis. DATA REPOSITORY:
[2024-11-25] MEDS: Ondansetron O.D.T. 4 MG TABEF, 3 TABS/BTL PO (15:25)
[2024-11-25] MEDS: HYDROcodone 5/Acetaminophen 325 TAB PO (15:25)
[2024-11-25 15:30] VITALS: BP 170/87; PULSE 81; RESP 16; O2SAT 98
== END 2024-11-25 15:30 | disposition home or self-care (01) ==
PROVIDERS: Emergency Provider Physician Assistant; PCP Nurse Practitioner Family
DX: K85.90 Acute pancreatitis without necrosis or infection, unspecified (principal); I10 Essential (primary) hypertension; E11.9 Type 2 diabetes mellitus without complications; Z86.73 Personal history of transient ischemic attack (TIA), and cerebral infarction without residual deficits; Z79.85 Long-term (current) use of injectable non-insulin antidiabetic drugs; Z87.891 Personal history of nicotine dependence
CPT/HCPCS: 36415; 80053; 83690; 93005; 96361; 96365; 96375; 99285; 74177; 76705; 81003; 81015; 83605; 83735; 84484; 85025; 93010; J0131; J1885; J2405; J3490

== ENCOUNTER 2024-12-20 15:42 | Emergency (ER) | payer MEDICAID, SELFPAY ==
[2024-12-20 15:44] VITALS: BP 192/119; PULSE 86; RESP 18; TEMP 36.7; O2SAT 98
[2024-12-20 15:53] VITALS: BP 192/119; PULSE 86; RESP 18; TEMP 36.7; O2SAT 98
[2024-12-20 15:54] VITALS: BP 192/119; PULSE 86; RESP 18; TEMP 36.7; O2SAT 98
[2024-12-20 16:24] LABS: Abs Immature Grans 0.04 10^3/uL (0.0-0.06); HCT 41.2 % (36.0-46.0); HGB 13.5 g/dL (11.2-15.7); Immature Grans % 0.4 %; MCH 27.3 pg (27.0-33.0); MCHC 32.8 % (32.0-36.0); MCV 83 fL (80-95); MPV 9.5 fL (8.0-11.0); Platelet Count 258 10^3/uL (130-400); RBC 4.95 10^6/uL (3.93-5.22); RDW 12.8 % (11.7-14.6); RDW-SD 38.5 fL; WBC 9.67 10^3/uL (4.4-10.8)
[2024-12-20] MEDS: Lactated Ringers 1,000 ML 1000 ML IV (16:27)
[2024-12-20] MEDS: ACETAMINOPHEN 1,000 MG/100 ML BAG 400 MG IVPB (16:28)
[2024-12-20] MEDS: Ondansetron 4 MG/2 ML VIAL IVP (16:28)
[2024-12-20] MEDS: Ketorolac 15 MG/ML VIAL IVP (16:28)
[2024-12-20 16:52] LABS: Anion Gap 8.9 mmol/L (3-11); BUN 13 mg/dL (7-18); CO2 29.1 mmol/L (21.0-32.0); Calcium 8.9 mg/dL (8.5-10.1); Chloride 98 mmol/L (98-107); Estimated GFR 78.86 (mL/min/1.73m2); Glucose 225 mg/dL (74-106); Lipase 67 U/L (<78); Magnesium 1.6 mg/dL (1.8-2.4); Potassium 3.9 mmol/L (3.5-5.1); Sodium 136 mmol/L (136-145); Troponin I 4 ng/L (<or=51)
--- NOTE | 2024-12-20 17:00 | DI.CT_ITS ---
Exam(s) CT ABDOMEN PELVIS W EXAM: CT ABDOMEN PELVIS W CLINICAL HISTORY: RUQ pain; intractable nausea/vomiting. TECHNIQUE: Imaging Protocol: Axial computed tomography images with coronal and sagittal reformatted images were created and reviewed CONTRAST MATERIAL: Intravenous: Omnipaque 350 Contrast volume:100 ml Oral: no COMPARISON: CT CT ABDOMEN PELVIS W from 11/25/2024 FINDINGS: ABDOMEN and PELVIS: Lung Bases: No acute findings. Liver: Enlarged. Hepatic steatosis. No suspicious mass. Gallbladder and biliary tract: No radiodense calculus. No wall thickening or pericholecystic fluid. No biliary dilation. Pancreas: Normal density. No abnormal calcifications or inflammatory process. No evidence of mass. Spleen: Normal. Kidneys: Normal size, contour and axis. No radiodense stones. No obstructive uropathy. No suspicious masses seen. Adrenal glands: No masses seen. Vasculature: Abdominal aorta non-dilated. Soft tissues: Unremarkable. Bladder: No gross wall thickening. No calculi.No focal mass. Bowel: No obstruction. No bowel wall thickening. Appendix normal. Peritoneal cavity: No ascites. No focal collection. No mesenteric inflammatory response. No free air. Bones: Unremarkable for age. Reproductive organs: Unremarkable. Lymph nodes: No pathologically enlarged lymph nodes. IMPRESSION:: No acute abnormality in the abdomen or pelvis. The preliminary [facility] report was reviewed. RADIATION DOSE DELIVERED: 1,002.22mGy.cm Total DLP DATA REPOSITORY: All CT scans at this facility are submitted to the National Radiology Data Registry (NRDR) Dose Index Registry (DIR) with the [employer] (A[employer]). RADIATION OPTIMIZATION: All CT scans at this facility use at least one of these dose optimization techniques: automated exposure control; mA and/or kV adjustment per patient size (includes targeted exams where dose is matched to clinical indication); or iterative reconstruction.
--- NOTE | 2024-12-20 17:13 | W.ED.GENAD ---
Discharge Plan Disposition Patient Disposition: Home Condition: Stable Discharge Details Clinical Impression: Biliary colic Primary Care Provider: Roger Ellis ED Provider: Steven Garcia Home Meds and New Rx's Prescriptions: No Action Ozempic 1 mg/dose (4 mg/3 mL) pen injector 1 mg subcut QWEEK Rx Instructions: Takes every week on Friday pantoprazole 40 mg tablet,delayed release (DR/EC) 40 mg PO DAILY folic acid 1 mg tablet 1 mg PO DAILY lisinopril 2.5 mg tablet 2.5 mg PO DAILY Qty: 30 0RF Trulicity 0.75 mg/0.5 mL pen injector 0.75 mg subcut QWEEK rosuvastatin [Crestor] 20 mg tablet 20 mg PO DAILY Discharge Instructions Instructions: Cholecystectomy, Laparoscopic Surgery, Ondansetron, Oxycodone Additional Instructions: You were seen in the emergency department for your upper abdominal pain with nausea and vomiting, there is no evidence of gallbladder infection on your CT scan today, no dilation of the common bile duct and indicating obstructive pathology, no gallstones are seen. I spoke with surgery on-call they will call you with an appointment tomorrow, I have attached our number to your discharge paperwork, have setting you home with to go pack of nausea medicine as well as pain medicine, I would recommend staying on a clear fluid diet tonight and minimal oral intake. They will follow-up with you for elective cholecystectomy tomorrow. Referrals: [facility] [Provider Group] Roger Ellis [Primary Care Provider, Medicine] Discharge Data Discharge Date/Time-TO BE ENTERED AT DEPARTURE: 12/20/24 19:53 HPI General Date/Time Provider Initiated Documentation: 12/20/24 16:04. HPI Narrative: 49 year-old female presents to ED today by POV/ambulating with a chief complaint of intractable nausea/vomiting, epigastric abdominal pain with known gallbladder issues with onset since last night. Quality described as constant ache in her upper abdomen, no radiation to hematemesis, shortness of breath, cough, fever, chest pain, diarrhea, black stools. Severity is described as severe. Palliating factors include nothing specific. Provoking factors include nothing specific. Events leading up to the incident/Associated Symptoms: Patient was seen last month for pancreatitis- had planned for elective myranda but has not spoken with surgery yet. Patient not anticoagulated. Related Data Home Medications ?Medication ?Instructions ?Recorded ?Confirmed folic acid 1 mg tablet 1 mg PO DAILY 04/16/23 12/20/24 pantoprazole 40 mg tablet,delayed 40 mg PO DAILY 04/16/23 12/20/24 release semaglutide 1 mg/dose (4 mg/3 mL) 1 mg subcut QWEEK 04/30/24 12/20/24 subcutaneous pen injector (Ozempic) lisinopril 2.5 mg tablet 2.5 mg PO DAILY #30 tabs 05/04/24 12/20/24 dulaglutide 0.75 mg/0.5 mL 0.75 mg subcut QWEEK 11/25/24 12/20/24 subcutaneous pen injector (Trulicity) rosuvastatin 20 mg tablet (Crestor) 20 mg PO DAILY 11/25/24 12/20/24 Previous Rx's ?Medication ?Instructions ?Recorded lisinopril 2.5 mg tablet 2.5 mg PO DAILY #30 tabs 05/04/24 Allergies Allergy/AdvReac Type Severity Reaction Status Date / Time latex Allergy Intermediate Hives Verified 12/20/24 15:50 oxycodone (From Percocet) Allergy Intermediate Itching Verified 12/20/24 15:50 simvastatin Allergy Intermediate Itching Verified 12/20/24 15:50 sulfamethoxazole (From Allergy Intermediate Itching Verified 12/20/24 15:50 Bactrim) trimethoprim (From Bactrim) Allergy Intermediate Itching Verified 12/20/24 15:50 semaglutide (From Ozempic) Allergy Mild Nausea Verified 12/20/24 15:50 empagliflozin (From AdvReac Intermediate Other (See Verified 12/20/24 15:50 Jardiance) Comment) General Stated Complaint: Abd Prob JERICA: 3 Review of Systems All systems reviewed & are unremarkable except as noted in HPI and below Exam Narrative Exam Narrative: GENERAL APPEARANCE: Well-nourished, non-toxic, awake and alert, atraumatic, moderate acute distress. SKIN: Warm, pink, dry, intact, without rashes/lesions/ulcerations. HEAD: Normocephalic, atraumatic, normal hair distribution for gender/age. EYES: Normal conjunctiva, no exudates on lids/lashes. ENT: Nares patent, no circumoral cyanosis, no facial swelling NECK: Supple, trachea midline, painless cervical ROM. LUNGS/CHEST: Non-labored respirations, normal A/P diameter, symmetrical expansion, no chest wall deformity HEART (CV/PV): No peripheral edema, no JVD. ABDOMEN: Soft, non-distended, no guarding, epigastric tenderness, active retching/vomiting. MSK: Normal ROM, no swelling/deformity to bilateral UEs or LEs, moving all extremities without weakness, no cyanosis, spine midline without tenderness, normal curvature. NEURO: Mental Status AAOx4 - alert to person, place, time, events No facial droop, no forehead involvement. Motor: No focal weakness - strength 5/5 in bilateral UEs and LEs, proximal and distal, symmetric. Sensory: sensation intact to light touch globally. Gait normal: patient ambulated without ataxia into ED room. PSYCH: euthymic, cooperative, pleasant, appropriate speech Course Vital Signs Vital signs: Vital Signs Temperature 36.7 C 12/20/24 15:44 Pulse 86 12/20/24 15:44 Respiratory Rate 18 12/20/24 15:44 Blood Pressure 192/119 H 12/20/24 15:44 Pulse Oximetry 98 12/20/24 15:44 Temperature 36.7 C 12/20/24 15:54 Temperature Source Oral 12/20/24 15:54 Pulse 86 12/20/24 15:54 Respiratory Rate 18 12/20/24 15:54 Blood Pressure 192/119 H 12/20/24 15:54 Blood Pressure Position Sitting 12/20/24 15:54 Pulse Oximetry 98 12/20/24 15:54 Oxygen Delivery Method Room Air 12/20/24 15:54 Oxygen Flow Rate 0 12/20/24 15:44 Pain Level 8 12/20/24 16:28 Lab/Test Results Lab/Test Results: 12/20/24 16:45 Blood Blood Culture - Pending 12/20/24 16:32 Blood Blood Culture - Pending Laboratory Tests Range/Units 12/20/24 16:15 WBC (4.4-10.8) 10^3/uL 9.67 RBC (3.93-5.22) 10^6/uL 4.95 Hgb (11.2-15.7) g/dL 13.5 Hct (36.0-46.0) % 41.2 MCV (80-95) fL 83 MCH (27.0-33.0) pg 27.3 MCHC (32.0-36.0) % 32.8 RDW (11.7-14.6) % 12.8 Plt Count (130-400) 10^3/uL 258 MPV (8.0-11.0) fL 9.5 Immature Gran % % 0.4 Neutrophils % % 62.2 Lymphocytes % % 29.9 Monocytes % % 6.0 Eosinophils % % 1.0 Basophils % % 0.5 Nucleated RBC % (0.0-0.3) % 0.0 Absolute Neutrophils (1.2-6.7) 10^3/uL 6.01 Absolute Lymphocytes (1.2-3.4) 10^3/uL 2.89 Absolute Monocytes (0.1-0.8) 10^3/uL 0.58 Absolute Eosinophils (0.0-0.7) 10^3/uL 0.10 Absolute Basophils (0.0-0.2) 10^3/uL 0.05 VBG Lactate (<or=2.0) mmol/L 1.3 Sodium (136-145) mmol/L 136 Potassium (3.5-5.1) mmol/L 3.9 Chloride (98-107) mmol/L 98 Carbon Dioxide (21.0-32.0) mmol/L 29.1 Anion Gap (3-11) mmol/L 8.9 BUN (7-18) mg/dL 13 Creatinine (0.55-1.02) mg/dL 0.9 Est GFR (CKD-EPI 2020) (mL/min/1.73m2) 78.86 Glucose (74-106) mg/dL 225 H Calcium (8.5-10.1) mg/dL 8.9 Magnesium (1.8-2.4) mg/dL 1.6 L Troponin I (<or=51) ng/L 4 Lipase (<78) U/L 67 Medical Decision Making This dictation utilizes [id number] dictation software and may contain unedited grammatical errors. 49 year-old female presents to ED today by POV/ambulating with a chief complaint of intractable nausea/vomiting, epigastric abdominal pain with known gallbladder issues with onset since last night. Quality described as constant ache in her upper abdomen, no radiation to hematemesis, shortness of breath, cough, fever, chest pain, diarrhea, black stools. Severity is described as severe. Palliating factors include nothing specific. Provoking factors include nothing specific. Events leading up to the incident/Associated Symptoms: Patient was seen last month for pancreatitis- had planned for elective myranda but has not spoken with surgery yet. Patients' medical history: Hypertension, T2DM, pancreatitis, known gallbladder sludge. Family and social history: Noncontributory. Pertinent exam findings / vital signs include benign cardiopulmonary exam, active vomiting on arrival that resolved, nontoxic and afebrile. Differential / pathologies of concern include biliary colic, pancreatitis, cholangitis, choledocholithiasis, gastritis, gastroenteritis. Diagnostic studies of: - CBC, CMP, lactate, magnesium, liver panel, troponin, lipase, UA, blood cultures, CT ABD/pelvis with contrast. - Labs are completely unremarkable, negative CBC, CMP, negative lactate, no elevation of liver enzymes or lipase, urine benign - Magnesium mildly low- repleted IV - CT shows no evidence of cholecystitis, no common bile duct dilatation, no stranding around the pancreas or other acute abdominal findings Interventions of: - IV Tylenol, Toradol, magnesium, Zofran, IVF LR 1 L, Zofran and 4 tab oxycodone to go. - Consulted with surgery Dr. Gold for close follow-up, they will call patient tomorrow to schedule elective myranda ED Course/Assessment/Plan: 49-year-old female has symptomatic gallbladder sludge, no acute findings on today's imaging and labs are within normal limits, achieved symptomatic relief with fluids and antiemetics and pain medications, counseled on clear fluid diet and arrange close follow-up with surgery practice, strict return criteria for any hematemesis or other emergent concerns. Findings not consistent with cholecystitis, choledocholithiasis, cholangitis, perforated viscus, pancreatitis. Disposition of Biliary Colic. Patient verbalized understanding of the plan and return to ED criteria and engaged in shared decision making. Medical Records Medical records reviewed: Yes I reviewed the patient's medical records. Imaging Data Radiologic Study: Attestation: I personally reviewed and interpreted this imaging study as follows: Imaging: CT Scan Radiologist's impression: Exam: CT Abdomen And Pelvis With Contrast Exam date and time: 12/20/2024 5:42 PM Age: 49 years old Clinical indication: Abdominal pain; Localized; Right upper quadrant (ruq); Ruq pain; Intractable nausea/vomiting TECHNIQUE: Imaging protocol: Computed tomography of the abdomen and pelvis with contrast. Total images: 436 COMPARISON: CT ABDOMEN PELVIS W 11/25/2024 12:19 PM FINDINGS: Lungs: Lung bases unremarkable. Liver: Hepatic steatosis/hepatomegaly. Gallbladder and biliary ducts: No definite gallbladder wall thickening, gallstone or biliary dilatation. Pancreas: No mass or peripancreatic stranding. Spleen: No splenomegaly or splenic nodule. Adrenal glands: No adrenal nodule. Kidneys and ureters: No renal mass. No hydronephrosis. No renal or ureteral calculi. Stomach and bowel: No wall thickening or dilatation. Appendix: No evidence of appendicitis. Intraperitoneal space: No free air or free fluid. Vasculature: No abdominal aortic aneurysm. Lymph nodes: No significant adenopathy. Urinary bladder: No definite bladder wall thickening or stone. Reproductive: No significant finding. Bones/joints: No acute bony abnormality. Soft tissues: No significant finding, IMPRESSION: No acute intra-abdominal finding. Dictated and Authenticated by: Bronson Horton MD. Lab Data Lab results reviewed: Yes I reviewed the patient's lab results. Labs: 12/20/24 16:45 Blood Blood Culture - Pending 12/20/24 16:32 Blood Blood Culture - Pending Laboratory Tests Range/Units 12/20/24 12/20/24 16:15 17:23 WBC (4.4-10.8) 10^3/uL 9.67 RBC (3.93-5.22) 10^6/uL 4.95 Hgb (11.2-15.7) g/dL 13.5 Hct (36.0-46.0) % 41.2 MCV (80-95) fL 83 MCH (27.0-33.0) pg 27.3 MCHC (32.0-36.0) % 32.8 RDW (11.7-14.6) % 12.8 Plt Count (130-400) 10^3/uL 258 MPV (8.0-11.0) fL 9.5 Immature Gran % % 0.4 Neutrophils % % 62.2 Lymphocytes % % 29.9 Monocytes % % 6.0 Eosinophils % % 1.0 Basophils % % 0.5 Nucleated RBC % (0.0-0.3) % 0.0 Absolute Neutrophils (1.2-6.7) 10^3/uL 6.01 Absolute Lymphocytes (1.2-3.4) 10^3/uL 2.89 Absolute Monocytes (0.1-0.8) 10^3/uL 0.58 Absolute Eosinophils (0.0-0.7) 10^3/uL 0.10 Absolute Basophils (0.0-0.2) 10^3/uL 0.05 VBG Lactate (<or=2.0) mmol/L 1.3 Sodium (136-145) mmol/L 136 Potassium (3.5-5.1) mmol/L 3.9 Chloride (98-107) mmol/L 98 Carbon Dioxide (21.0-32.0) mmol/L 29.1 Anion Gap (3-11) mmol/L 8.9 BUN (7-18) mg/dL 13 Creatinine (0.55-1.02) mg/dL 0.9 Est GFR (CKD-EPI 2020) (mL/min/1.73m2) 78.86 Glucose (74-106) mg/dL 225 H Calcium (8.5-10.1) mg/dL 8.9 Magnesium (1.8-2.4) mg/dL 1.6 L Total Bilirubin (0.2-1.0) mg/dL 0.4 Conjugated Bilirubin (0.0-0.2) mg/dL 0.1 AST (15-37) U/L 15 ALT (14-59) U/L 27 Alkaline Phosphatase (46-116) U/L 78 Troponin I (<or=51) ng/L 4 Total Protein (6.4-8.2) g/dL 7.5 Albumin (3.4-5.0) g/dL 3.6 Lipase (<78) U/L 67 Urine Color (Yellow) Yellow Urine Clarity (Clear) Clear Urine pH (5-8) 6.0 Ur Specific [place] (1.005-1.025) >= 1.030 H Urine Protein (Neg-Trace) mg/dL >=300 H Urine Ketones (Negative) mg/dL 40 H Urine Blood (Negative) Moderate H Urine Nitrite (Negative) Negative Urine Bilirubin (Negative) Small H Urine Urobilinogen (Up to 0.2) mg/dL 0.2 Ur Leukocyte Esterase (Negative) Negative Urine RBC (0-2) HPF 3-5 H Urine WBC (0-5) HPF 3-5 Ur Epithelial Cells (Negative) HPF Moderate Urine Crystals (Negative) HPF Negative Urine Bacteria (Negative) HPF Negative Urine Casts (Negative) LPF Negative Urine Mucus (Negative) Negative Ur Culture Indicated? No/Sq. Contamination Urine Glucose (Negative) mg/dL 100 H Quality:SDOH Health Related Social Needs: Health related social needs house/econ circumstance lonely/isolated PFSH All Active Problems (Updated 12/20/24 @ 18:53 by BINDU Garcia) Biliary colic (Acute) Pancreatitis (Chronic) Pain, dental (Acute) General counseling and advice on contraceptive management (Acute) Medical History Type 2 diabetes mellitus Surgical History S/P removal of ovarian cyst Family History Mother Diabetes Heart disease Sister Diabetes Social History Smoking/Tobacco Use Status: Former Tobacco Use Smoking risk assessment performed?: Yes Alcohol Intake: current Alcohol Intake frequency: 0-2 drinks per day Substance use type: marijuana Housing: apartment Do you feel safe at home: Yes Do you feel safe in your relationship?: Yes Additional Social history: Lives with and 3 grandkids in [facility] Have you Been Recently Intoxicated or Drunk Within the Last 30 days?: No Have you Ever Experienced Previous Episodes of Alcohol Withdrawal?: No Have you ever Experienced Withdrawal Seizures?: No Have you ever Experienced Delirium Tremens(DT)s?: No Have you ever undergone Alcohol Rehabilitation Treatment (i.e, inpt ot outpatient treatment programs)?: No Have you ever Experienced Blackouts?: No Have you ever Combined Alcohol with other Downers within the last 90 days?: No Have you ever Combined Alcohol with any other Substance of Abuse during the last 90 days?: No Positive Blood Alcohol level on Presentation? [PCS.BAL]: No Evidence of Increased Autonomic Activity (i.e. HR>120, tremor, sweating, agitation, nausea)?: No Result: 0
[2024-12-20] MEDS: MAGNESIUM SULFATE 2 GM/50 ML BAG IV_INF (17:18)
[2024-12-20] MEDS: Normal Saline - Diluent 50 ML VIAL IJ (17:38)
[2024-12-20] MEDS: Omnipaque 350 MG/ML 100 ML BTL IJ (17:38)
[2024-12-20 17:40] LABS: Glucose 100 mg/dL (Negative)
[2024-12-20 17:43] LABS: ALT 27 U/L (14-59); AST 15 U/L (15-37); Albumin 3.6 g/dL (3.4-5.0); Alkaline Phosphatase 78 U/L (46-116); Bilirubin, Direct 0.1 mg/dL (0.0-0.2); Bilirubin, Total 0.4 mg/dL (0.2-1.0); Total Protein 7.5 g/dL (6.4-8.2)
--- NOTE | 2024-12-20 18:14 | DI.VRAD_ITS ---
PROCEDURE INFORMATION: Exam: CT Abdomen And Pelvis With Contrast Exam date and time: 12/20/2024 5:42 PM Age: 49 years old Clinical indication: Abdominal pain; Localized; Right upper quadrant (ruq); Ruq pain; Intractable nausea/vomiting TECHNIQUE: Imaging protocol: Computed tomography of the abdomen and pelvis with contrast. Total images: 436 COMPARISON: CT ABDOMEN PELVIS W 11/25/2024 12:19 PM FINDINGS: Lungs: Lung bases unremarkable. Liver: Hepatic steatosis/hepatomegaly. Gallbladder and biliary ducts: No definite gallbladder wall thickening, gallstone or biliary dilatation. Pancreas: No mass or peripancreatic stranding. Spleen: No splenomegaly or splenic nodule. Adrenal glands: No adrenal nodule. Kidneys and ureters: No renal mass. No hydronephrosis. No renal or ureteral calculi. Stomach and bowel: No wall thickening or dilatation. Appendix: No evidence of appendicitis. Intraperitoneal space: No free air or free fluid. Vasculature: No abdominal aortic aneurysm. Lymph nodes: No significant adenopathy. Urinary bladder: No definite bladder wall thickening or stone. Reproductive: No significant finding. Bones/joints: No acute bony abnormality. Soft tissues: No significant finding, IMPRESSION: No acute intra-abdominal finding. Dictated and Authenticated by: Brosnon Horton MD. Orderin Radha Harris MD
[2024-12-20 18:20] VITALS: BP 168/81; PULSE 82; RESP 14; O2SAT 100
[2024-12-20 19:31] VITALS: BP 139/77; PULSE 66; RESP 16; TEMP 36.7; O2SAT 99
[2024-12-20] MEDS: Ondansetron O.D.T. 4 MG TABEF, 3 TABS/BTL PO (19:45)
[2024-12-20] MEDS: oxyCODONE 5 MG TAB 20 MG PO (19:46)
== END 2024-12-20 19:53 | disposition home or self-care (01) ==
PROVIDERS: Emergency Provider Physician Assistant; PCP Nurse Practitioner Family
DX: K80.50 Calculus of bile duct without cholangitis or cholecystitis without obstruction; R10.11 Right upper quadrant pain; R11.2 Nausea with vomiting, unspecified; R10.13 Epigastric pain
CPT/HCPCS: 36415; 80048; 80076; 81025; 83690; 87040; 96361; 96365; 96366; 96375; 99284; 74177; 81003; 81015; 83605; 83735; 84484; 85025; J0131; J1885; J2405; J3475; J3490

== ENCOUNTER 2024-12-30 12:37 | Day surgery (SDC) | payer MEDICAID, SELFPAY ==
--- NOTE | 2024-12-30 11:11 | W.ANESPRE ---
General Info Date of Service Date Performed: 12/30/24 Height: 5 ft 7.75 in Weight: 125.645 kg Body Mass Index (BMI): 42.4 Surgical Procedure: Operation Date: 12/30/24 14:05 Proposed Procedure Side Surgeon p Gastroscopy Babita Gold MD Meds Allergies and Home Medications Allergies Allergy/AdvReac Type Severity Reaction Status Date / Time latex Allergy Intermediate Hives Verified 12/28/24 09:09 oxycodone (From Percocet) Allergy Intermediate Itching Verified 12/28/24 09:09 simvastatin Allergy Intermediate Itching Verified 12/28/24 09:09 sulfamethoxazole (From Allergy Intermediate Itching Verified 12/28/24 09:09 Bactrim) trimethoprim (From Bactrim) Allergy Intermediate Itching Verified 12/28/24 09:09 semaglutide (From Ozempic) Allergy Mild Nausea Verified 12/28/24 09:09 dulaglutide (From Trulicity) AdvReac Severe vomiting, Verified 12/28/24 09:09 diarrhea empagliflozin (From AdvReac Intermediate Other (See Verified 12/28/24 09:09 Jardiance) Comment) Home Medication ?Medication ?Instructions ?Recorded folic acid 1 mg tablet 1 mg PO DAILY 04/16/23 pantoprazole 40 mg tablet,delayed 40 mg PO DAILY 04/16/23 release lisinopril 2.5 mg tablet 2.5 mg PO DAILY #30 tabs 05/04/24 rosuvastatin 20 mg tablet (Crestor) 20 mg PO DAILY 11/25/24 cholecalciferol (vitamin D3) 25 25 mcg PO DAILY 12/22/24 mcg (1,000 unit) capsule insulin aspart U-100 100 unit/mL 30 unit subcut TID 12/22/24 (3 mL) subcutaneous pen (Novolog FlexPen U-100 Insulin aspart) insulin glargine 100 unit/mL 50 unit subcut QAM 12/22/24 subcutaneous cartridge magnesium 250 mg tablet 250 mg PO DAILY PRN 12/22/24 ondansetron HCl 4 mg tablet 4 mg PO Q8H PRN nausea and 12/22/24 vomiting #30 tabs pantoprazole 40 mg tablet,delayed 40 mg PO BID 30 days #60 tabs 12/22/24 release potassium gluconate 500 mg (83 mg) 500 mg PO DAILY PRN 12/22/24 tablet sucralfate 1 gram tablet (Carafate) 1 g PO QACHS 4 weeks #112 tabs 12/22/24 aspirin 81 mg capsule 81 mg PO DAILY 12/30/24 Current Visit Medications: Current Medications Generic Name Dose Route Start Last Admin Trade Name Minerva PRN Reason Stop Dose Admin Ringer's Solution 1,000 mls @ 80 mls/hr 12/30/24 06:00 IV 12/30/24 23:59 INFUSION ARNOLD IV Miscellaneous Supplies 1 each 12/30/24 06:00 Iv Access IV 12/30/24 23:59 DIRECTED ARNOLD Sodium Chloride 0 ml 12/30/24 06:00 Normal Saline Flush 10 Ml Syr IV 12/30/24 23:59 PRN PRN Sodium Chloride 0 ml 12/30/24 06:00 Normal Saline 10 Ml Vial IJ 12/30/24 23:59 DIRECTED PRN Sterile Water 0 ml 12/30/24 06:00 Water,Injection,Sterile 10 Ml Vial IJ 12/30/24 23:59 DIRECTED PRN PFSH Active Problems Active Problems: Problem Status Onset Code RUQ pain Acute R10.11 Epigastric pain Acute R10.13 Nausea & vomiting Acute R11.2 Biliary colic Acute K80.50 Pain, dental Acute K08.89 General counseling and advice on contraceptive management Acute Z30.09 Medical History Medical History (Updated 12/27/24 @ 11:23 by Alejandra Melendez RN) Lacunar infarction Hypertension Type 2 diabetes mellitus Surgical History Surgical History (Updated 12/28/24 @ 09:15 by Alejandra Melendez RN) H/O colonoscopy H/O laparoscopy H/O partial thyroidectomy S/P removal of ovarian cyst Tobacco Smoking/Tobacco Use Status: Former Tobacco Use Alcohol Alcohol Intake: current Alcohol intake frequency: 0-2 drinks per day Substance Use Substance use: Daily Substance use type: marijuana Details: smoking marijuana daily Vital Signs and Lab Results Vital Signs Most Recent Vital Signs in EMR: Temp Pulse Resp BP Pulse Ox 36.3 C L 95 H 18 180/87 H 95 12/30/24 12:58 12/30/24 12:58 12/30/24 12:58 12/30/24 12:58 12/30/24 12:58 Lab Results Complete Blood Count: WBC, (4.4-10.8) 9.67 10^3/uL 12/20/24, 16:15 RBC, (3.93-5.22) 4.95 10^6/uL 12/20/24, 16:15 Hgb, (11.2-15.7) 13.5 g/dL 12/20/24, 16:15 Hct, (36.0-46.0) 41.2 % 12/20/24, 16:15 Plt Count, (130-400) 258 10^3/uL 12/20/24, 16:15 VBG Lactate, (<or=2.0) 1.3 mmol/L 12/20/24, 16:15 Complete Metabolic Panel: Sodium, (136-145) 136 mmol/L 12/20/24, 16:15 Potassium, (3.5-5.1) 3.9 mmol/L 12/20/24, 16:15 Chloride, (98-107) 98 mmol/L 12/20/24, 16:15 Carbon Dioxide, (21.0-32.0) 29.1 mmol/L 12/20/24, 16:15 BUN, (7-18) 13 mg/dL 12/20/24, 16:15 Creatinine, (0.55-1.02) 0.9 mg/dL 12/20/24, 16:15 Est GFR (CKD-EPI 2020), (mL/min/1.73m2) 78.86 12/20/24, 16:15 Magnesium, (1.8-2.4) 1.6 mg/dL L 12/20/24, 16:15 Calcium, (8.5-10.1) 8.9 mg/dL 12/20/24, 16:15 Albumin, (3.4-5.0) 3.6 g/dL 12/20/24, 16:15 Glucose, (74-106) 225 mg/dL H 12/20/24, 16:15 Liver Function Panel: ALT, (14-59) 27 U/L 12/20/24, 16:15 AST, (15-37) 15 U/L 12/20/24, 16:15 Cardiac Panel: Troponin I, (<or=51) 4 ng/L 12/20/24 Pancreas Panel: Lipase, (<78) 67 U/L 12/20/24, 16:15 Anesthesia Assessment and Plan Anesthesia History Personal History: No History of Anesthesia Complications Family History: No Family History of Anesthesia Complications Exercise Tolerance Exercise Tolerance: Metabolic Equivalents>4 Cardiac & Pulmonary Exam Cardiac Exam: Normal S1/S2 Heart Sounds Pulmonary Exam: Clear Bilateral Breath Sounds Implantable Cardiac Device Does patient have a Pacemaker or an ICD?: No Airway Exam Known Difficult Airway: No Mallampati Class: 3 Mouth Opening: Normal (> 3cm) Thyromental Distance: Less than 3 cm Neck Range of Motion: Full ROM Neck Circumference: Normal Teeth Condition: Normal Dentition ASA Classification ASA Score: ASA 3 Emergency Case?: No NPO Status NPO Status: NPO Clears >2 hours, Solids >8 hours Status Status: Negative HCG Anesthesia Plan Resuscitation Status: Full Code Anesthesia Technique: General Anesthesia Airway Planned: Natural Airway Monitors Used: Standard Monitors Preoperative Comments:: 49 yo for EGD. Sig PMHx: HTN (lisinopril), GERD (omeprazole, Carafate), DM2 (glargine). former smoker. daily cannabis. Carotid US: no sig stenosis. ECHO: LVEF 55%. No valve issues. ECG: sinus.
[2024-12-30 11:17] VITALS: BMI 42.4
[2024-12-30 12:58] VITALS: BP 180/87; PULSE 95; RESP 18; TEMP 36.3; O2SAT 95
[2024-12-30] MEDS: Lactated Ringers 1,000 ML 80 ML IV (13:33)
--- NOTE | 2024-12-30 13:46 | W.PM.DSUDISC ---
Date of service: 12/30/24 Discharge Plan Disposition Patient Disposition: Home Condition: Stable Discharge Details Attending Provider: Babita Gold Primary Care Provider: Roger Ellis Recommendations for Follow Up Recommended tests to be ordered by follow up provider: None at this time Home Meds and New Rx's Prescriptions: New metoclopramide HCl [Reglan] 10 mg tablet 5 mg PO QACHS 30 Days Qty: 60 0RF Continued cholecalciferol (vitamin D3) 25 mcg (1,000 unit) capsule 25 mcg PO DAILY insulin aspart U-100 [Novolog FlexPen U-100 Insulin] 100 unit/mL (3 mL) insulin pen 30 unit subcut TID insulin glargine 100 unit/mL cartridge 50 unit subcut QAM magnesium 250 mg tablet 250 mg PO DAILY PRN Patient Comments: pt is taking 200mg daily potassium gluconate 500 mg (83 mg) tablet 500 mg PO DAILY PRN sucralfate [Carafate] 1 gram tablet 1 g PO QACHS 28 Days Qty: 112 0RF ondansetron HCl 4 mg tablet 4 mg PO Q8H PRN (Reason: nausea and vomiting) Qty: 30 3RF pantoprazole 40 mg tablet,delayed release (DR/EC) 40 mg PO BID 30 Days Qty: 60 2RF Patient Comments: hasn't gotten a new rx with this yet folic acid 1 mg tablet 1 mg PO DAILY lisinopril 2.5 mg tablet 2.5 mg PO DAILY Qty: 30 0RF rosuvastatin [Crestor] 20 mg tablet 20 mg PO DAILY aspirin 81 mg capsule 81 mg PO DAILY Discontinued pantoprazole 40 mg tablet,delayed release (DR/EC) 40 mg PO DAILY Discharge Instructions Additional Instructions: EGD today showed a full stomach despite you not having had anything to eat or drink since yesterday. A lot more in there than would be expected even if you drank this morning. This would cause constant nausea as well as pain, and nausea and pain would worsen with additional intake of food. This looks suspicious for a problem called gastroparesis. The stomach emptying test I ordered on you will evaluate and test for that problem, and we will look forward to seeing the answer on that. I prescribed a medication to help empty the stomach and help with nausea. Its called metaclopramide. Start with half tablet per dose as instructed on the bottle and lets see if it helps. We may increase this to a whole tablet per dose later on. Complete all tests and take all medications as prescribed by me and your doctor. See you in office after testing as planned . Other findings today were hiatal hernia which was very small but causes heartburn and reflux issues (which by the way would make you cough when your stomach is full!). Stomach lining irritation called gastritis seen also. Biopsies of stomach and esophagus taken to rule out stomach infection and assess for acid damage. Will review at your appointment. Activity:: Activity as Tolerated Diet:: As Tolerated Discharge Orders Discharge Orders: Discharge Order (Routine); Ordered 12/30/24 Ordered By: Babita Gold DS: Diagnosis Discharge Diagnosis (1) RUQ pain: Status: Acute (2) Epigastric pain: Status: Acute (3) Nausea & vomiting: Status: Acute (4) Retained food in stomach: Status: Acute (5) Hiatal hernia with gastroesophageal reflux disease without esophagitis: Status: Acute (6) Mild chronic gastritis: Status: Acute
--- NOTE | 2024-12-30 13:53 | STOM_PTH ---
PATIENT: Rochelle Cagle LOC: [facility] U#:[id number] AGE/SX: 49/F ROOM: RE12/30/[address]: Babita Gold MD : 1975 BED: DIS: 12/30/2024 SPEC #: [id number] RECD: 12/30/24 17:59 STATUS: OSCAR RENolberto #: [id number] JORGE: 12/30/24 13:[address]: Babita Gold DEPT: Surgical Specimen RECD BY: Acacia Argueta ENTERED: 12/30/24 17:59 SP TYPE: STOMACH OTHR DR: Roger Ellis Tissues: 1 - STOMACH BIOPSY 2 - ESOPHAGUS BIOPSY Procedures: GROSS AND MICRO LEVEL 4 Comments: [id number]
--- NOTE | 2024-12-30 14:02 | W.PM.ENDDOP ---
Date of service: 12/30/24 Time of Service: 14:03 Endoscopy Report DATE OF PROCEDURE: 12/30/24 PRE-OP DIAGNOSIS: Epigastric pain, nausea, emesis, RUQ pain POST-OP DIAGNOSIS: same (full stomach/retained contents of stomach, hiatal hernia without esophagitis, mild chronic gastritis) PROCEDURE: EGD with biopsy SURGEON: Babita Gold ANESTHESIA TYPE: General:No Airway ESTIMATED BLOOD LOSS: 2 PATHOLOGY: other (1. antrum biopsy. 2. distal esophagus) COMPLICATIONS: None DISPOSITION: same day PROCEDURE DESCRIPTION: Lubricated endoscope was passed through a bite block into the second portion of the duodenum. The endoscope was withdrawn and the duodenum stomach and esophageal mucosa examined. The duodenum appeared normal. There is no inflammation or ulceration or erosion. Stomach was full and contents were suctioned out. Abnormal amount of bile and old food contents. The antrum appears mildly inflamed with streaky erythema. No ulcers. The fundus appears mildly inflamed with streaky erythema. The cardia appears normal and there is evidence of small hiatal hernia upon retroflexion. The distal esophagus shows evidence of irregular Z line in one area without ulceration varices or candidiasis. GE junction is at 37cm. Remainder of the esophagus appears normal Cold forceps biopsies obtained from antrum and the distal esophagus for microscopic evaluation for H. pylori, esophagitis, Barretts. The upper digestive system was desufflated and the endoscope withdrawn. No complications. Assessment and plan: Full stomach Hiatal hernia mild chronic gastritis Suspect delayed gastric emptying as a cause for her symptoms. Gastric emptying study ordered and pending. Start reglan 5mg with meals and at night. Office follow up to review tests and biopsies and remainder of work up. continue PPI as prescribed and antiemetics as prescibed.
[2024-12-30 14:04] VITALS: BP 106/54; PULSE 91; RESP 20; TEMP 36.4; O2SAT 97
[2024-12-30 14:30] VITALS: BP 105/69; PULSE 78; RESP 16; TEMP 36.5; O2SAT 96
--- NOTE | 2024-12-30 14:35 | W.ANESPOSTOP ---
Postoperative Evaluation Date, Time and Location Date Performed: 12/30/24 Time Performed: 14:35 Patient Location: Day Surgery Unit Vital Signs Most Recent Imported Vital Signs: Most Recent Vital Signs Temp Pulse Resp BP Pulse Ox 36.5 C 78 16 105/69 96 12/30/24 14:30 12/30/24 14:30 12/30/24 14:30 12/30/24 14:30 12/30/24 14:30 Pain Score Most Recent Pain Score: Most Recent Pain Score Pain Level 0 12/30/24 14:30 Assessment Mental Status: Awake (Alert & Oriented to Patient Baseline) Airway and Respiratory Function: Patent airway with normal (patient baseline) respiratory exam Cardiovascular Function: Hemodynamically Stable Hydration Status: Adequately Hydrated Nausea & Vomiting: No Nausea or Vomiting Pain: Pt. Denies Any Pain Peripheral Nerve Block: Patient did not receive a nerve block
== END 2024-12-30 14:35 | disposition home or self-care (01) ==
PROVIDERS: PCP Nurse Practitioner Family; Visit Provider Surgery
PROC: 0DJ68ZZ Inspection of Stomach, Via Natural or Artificial Opening Endoscopic (ICD-10-PCS; CPT 43235; principal; 2024-12-30 14:00)
DX: R10.11 Right upper quadrant pain (principal); R10.13 Epigastric pain; R11.2 Nausea with vomiting, unspecified; K31.89 Other diseases of stomach and duodenum; K44.9 Diaphragmatic hernia without obstruction or gangrene; K21.00 Gastro-esophageal reflux disease with esophagitis, without bleeding; K29.50 Unspecified chronic gastritis without bleeding; I10 Essential (primary) hypertension; E11.9 Type 2 diabetes mellitus without complications; Z87.891 Personal history of nicotine dependence; K31.9 Disease of stomach and duodenum, unspecified
CPT/HCPCS: 43239; 81025; 88305; J2250; J2405; J2704

== ENCOUNTER 2025-02-23 12:15 | Outpatient (CLI) | payer MEDICAID, SELFPAY ==
[2025-02-23 12:21] LABS: TSH (W/Ref FT4) 3.23 uIU/mL (0.36-3.74)
== END 2025-02-23 12:16 | disposition home or self-care (01) ==
LOC: LBO 12:15
PROVIDERS: PCP Nurse Practitioner Family; Visit Provider Surgery
DX: R53.83 Other fatigue (principal); R63.5 Abnormal weight gain; E89.0 Postprocedural hypothyroidism
CPT/HCPCS: 36415; 84443